=== PATIENT | female | born 1950 | race Two or more races ===

== ENCOUNTER → 2017-03-02 | Outpatient (CLI) | payer OTHER ==
--- NOTE | 2017-03-10 09:49 | MM ---
Reason for exam: screening (asymptomatic). Baseline mammogram. History: Patient is postmenopausal. Physical Findings: A clinical breast exam by your physician is recommended on an annual basis and results should be correlated with mammographic findings. MG 3D Screening Mammo W/Cad Bilateral CC and MLO view(s) were taken. Prior study comparison: January 24, 2016, mammogram, performed at [place]. December 26, 2014, mammogram, performed at [place]. The breast tissue is heterogeneously dense. This may lower the sensitivity of mammography. There is chronic nodularity bilaterally. There is no dominant lesion. No significant changes when compared with prior studies. ASSESSMENT: Benign, BI-RAD 2 RECOMMENDATION: Routine screening mammogram of both breasts in 1 year.
== END ==
LOC: RADMAMWWP 13:03
PROVIDERS: ATTEND Family Medicine
DX: Z12.31 Encounter for screening mammogram for malignant neoplasm of breast (principal)
CPT/HCPCS: 77063; G0202

== ENCOUNTER → 2018-04-08 | Outpatient (CLI) | payer MEDICARE ==
--- NOTE | 2018-04-09 09:45 | MM ---
Reason for exam: screening (asymptomatic). Last mammogram was performed 1 year and 1 month ago. History: Patient is postmenopausal. Physical Findings: A clinical breast exam by your physician is recommended on an annual basis and results should be correlated with mammographic findings. MG 3D Screening Mammo W/Cad Bilateral CC and MLO view(s) were taken. Prior study comparison: March 02, 2017, bilateral MG 3d screening mammo w/cad. January 24, 2016, mammogram, performed at [place]. The breast tissue is heterogeneously dense. This may lower the sensitivity of mammography. No significant changes when compared with prior studies. ASSESSMENT: Benign, BI-RAD 2 RECOMMENDATION: Routine screening mammogram of both breasts in 1 year.
== END ==
LOC: RADMAMWWP 13:34
PROVIDERS: ATTEND Family Medicine
DX: Z12.31 Encounter for screening mammogram for malignant neoplasm of breast (principal)
CPT/HCPCS: 77063; 77067

== ENCOUNTER 2019-04-05 20:33 | Emergency (ER) | payer MEDICARE ==
[2019-04-05] MEDS ORDERED: SODIUM CHLORIDE 0.9% 1,000 ML IV STA (20:51)
--- NOTE | 2019-04-05 20:57 | ED ---
Arrhythmia/Palpitations HPI - General Chief Complaint: Arrhythmia/Palpitations Stated Complaint: Fast heart rate, weakness Time Seen by Provider: 04/05/19 20:46 Source: patient Mode of arrival: wheelchair Limitations: no limitations - History of Present Illness Initial Comments: 68 year-old female patient presents to the emergency department today for ev aluation of racing heart. Patient states she had a colonoscopy performed yesterday has been having rapid heart rate since. Patient states that she feels generally weak and nauseated with this. She denies any vomiting. Denies any chest pain or shortness of breath. Patient denies any history of abnormal heart rhythms or tachycardia. She denies any use of stimulants. No caffeinated beverages. Denies any history of thyroid disorders. Patient denies any recent rash, fever, chills, abdominal pain, diarrhea, constipation, back pain, numbness, tingling, hematuria, dysuria, urinary urgency, urinary frequency, headache, visual changes, or any other complaints. - Related Data Home Medications Medication Instructions Recorded Confirmed Biotin 5 mg PO DAILY 04/05/19 04/05/19 Empagliflozin [Jardiance] 25 mg PO DAILY 04/05/19 04/05/19 Esomeprazole Magnesium [NexIUM] 40 mg PO DAILY 04/05/19 04/05/19 Eszopiclone [Lunesta] 3 mg PO HS 04/05/19 04/05/19 Insulin Degludec [Tresiba] 8 units SQ DAILY 04/05/19 04/05/19 Liraglutide [Victoza 2-Julio] 1.8 mg SQ DAILY 04/05/19 04/05/19 Lisinopril 20 mg PO DAILY 04/05/19 04/05/19 Naproxen Sodium [Aleve] 220 mg PO BID 04/05/19 04/05/19 Pravastatin Sodium [Pravachol] 20 mg PO DAILY 04/05/19 04/05/19 Ubidecarenone [Co Q-10] 100 mg PO DAILY 04/05/19 04/05/19 Vit C/E/Zn/Coppr/Lutein/Zeaxan 1 cap PO BID 04/05/19 04/05/19 [Preservision Areds 2 Softgel] metFORMIN HCL 1,000 mg PO BID 04/05/19 04/05/19 Allergies Allergy/AdvReac Type Severity Reaction Status Date / Time codeine AdvReac Nausea & Verified 04/05/19 21:05 Vomiting nickel AdvReac Rash/Hives Verified 04/05/19 21:05 thimerosal AdvReac Rash/Hives Verified 04/05/19 21:05 Review of Systems ROS Statement: Those systems with pertinent positive or pertinent negative responses have been documented in the HPI. ROS Other: All systems not noted in ROS Statement are negative. Past Medical History Past Medical History: Diabetes Mellitus, Hypertension History of Any Multi-Drug Resistant Organisms: None Reported Past Surgical History: Hysterectomy Additional Past Surgical History / Comment(s): laminectomy, bunionectomy, Past Psychological History: No Psychological Hx Reported Smoking Status: Never smoker Past Alcohol Use History: None Reported Past Drug Use History: None Reported General Exam Limitations: no limitations General appearance: alert, in no apparent distress, other (This is a well- developed, well-nourished adult female patient in no acute distress. Vital signs upon presentation are temperature 97.9F, pulse 153, respirations 19, blood pressure 129/70, pulse ox 100% on room air.) Eye exam: Present: normal appearance, PERRL, EOMI. Absent: scleral icterus, conjunctival injection, periorbital swelling ENT exam: Present: normal exam, normal oropharynx, mucous membranes moist Respiratory exam: Present: normal lung sounds bilaterally. Absent: respiratory distress, wheezes, rales, rhonchi, stridor Cardiovascular Exam: Present: normal rhythm, tachycardia, normal heart sounds. Absent: systolic murmur, diastolic murmur, rubs, gallop, clicks GI/Abdominal exam: Present: soft, normal bowel sounds. Absent: distended, tenderness, guarding, rebound, rigid Neurological exam: Present: alert, oriented X3, CN II-XII intact Psychiatric exam: Present: normal affect, normal mood Skin exam: Present: warm, dry, intact, normal color. Absent: rash Course Vital Signs 04/05/19 04/05/19 04/05/19 20:40 21:13 22:05 Temperature 97.9 F Pulse Rate 153 H 122 H 91 Respiratory 19 18 18 Rate Blood Pressure 129/70 125/62 117/56 O2 Sat by Pulse 100 98 100 Oximetry EKG Findings - EKG Comments: EKG Findings:: EKG obtained at 2058 shows sinus tachycardia with a ventricular rate of 134, OH interval 130, QRS duration 78, QT 302, QTc 450. No evidence of ST elevation or depression. Medical Decision Making - Medical Decision Making 68 year-old female patient presents to the emergency department today for evaluation of weakness and racing heart. Physical examination did reveal tachycardia with a normal rhythm and normal heart sounds. She is neurologically intact with no focal deficits. Labs reviewed and did reveal elevated BUN. Did reveal low TSH with a normal T4 level. I did discuss findings and results with the patient. After receiving IV fluids here in the emergency department she does report improvement of symptoms. Currently is now between 88 and 90 bpm I again exhibiting normal sinus rhythm. Patient does feel comfortable being discharged home at this time. Did discuss dehydration as a cause for her symptoms. This is secondary to receiving a bowel prep for colonoscopy yesterday. She is instructed to follow-up with her primary care physician for recheck as soon as possible. Return parameters were discussed in detail. She verbalizes understanding and agrees with this plan. - Lab Data Result diagrams: 04/05/19 21:00 04/05/19 21:00 Lab Results 04/05/19 04/05/19 04/05/19 Range/Units 21:00 21:00 21:00 WBC 11.3 H (3.8-10.6) k/uL RBC 4.89 (3.80-5.40) m/uL Hgb 13.8 (11.4-16.0) gm/dL Hct 44.1 (34.0-46.0) % MCV 90.3 (80.0-100.0) fL MCH 28.2 (25.0-35.0) pg MCHC 31.3 (31.0-37.0) g/dL RDW 14.3 (11.5-15.5) % Plt Count 497 H (150-450) k/uL Neutrophils % 72 % Lymphocytes % 17 % Monocytes % 8 % Eosinophils % 1 % Basophils % 0 % Neutrophils # 8.1 H (1.3-7.7) k/uL Lymphocytes # 1.9 (1.0-4.8) k/uL Monocytes # 0.9 (0-1.0) k/uL Eosinophils # 0.1 (0-0.7) k/uL Basophils # 0.1 (0-0.2) k/uL Hypochromasia Slight PT 9.3 (9.0-12.0) sec INR 0.8 (<1.2) APTT 20.5 L (22.0-30.0) sec D-Dimer 0.36 (<0.60) mg/L FEU Sodium 137 (137-145) mmol/L Potassium 5.0 (3.5-5.1) mmol/L Chloride 105 (98-107) mmol/L Carbon Dioxide 12 L (22-30) mmol/L Anion Gap 20 mmol/L BUN 28 H (7-17) mg/dL Creatinine 0.94 (0.52-1.04) mg/dL Est GFR (CKD-EPI)AfAm 73 (>60 ml/min/1.73 sqM) Est GFR (CKD-EPI)NonAf 64 (>60 ml/min/1.73 sqM) Glucose 266 H (74-99) mg/dL Calcium 11.3 H (8.4-10.2) mg/dL Magnesium 2.3 (1.6-2.3) mg/dL Total Bilirubin 0.5 (0.2-1.3) mg/dL AST 21 (14-36) U/L ALT 52 (9-52) U/L Alkaline Phosphatase 123 (38-126) U/L Troponin I (0.000-0.034) ng/mL Total Protein 7.3 (6.3-8.2) g/dL Albumin 4.8 (3.5-5.0) g/dL TSH 0.156 L (0.465-4.680) mIU/L Free T4 (0.78-2.19) ng/dL 04/05/19 04/05/19 Range/Units 21:00 21:00 WBC (3.8-10.6) k/uL RBC (3.80-5.40) m/uL Hgb (11.4-16.0) gm/dL Hct (34.0-46.0) % MCV (80.0-100.0) fL MCH (25.0-35.0) pg MCHC (31.0-37.0) g/dL RDW (11.5-15.5) % Plt Count (150-450) k/uL Neutrophils % % Lymphocytes % % Monocytes % % Eosinophils % % Basophils % % Neutrophils # (1.3-7.7) k/uL Lymphocytes # (1.0-4.8) k/uL Monocytes # (0-1.0) k/uL Eosinophils # (0-0.7) k/uL Basophils # (0-0.2) k/uL Hypochromasia PT (9.0-12.0) sec INR (<1.2) APTT (22.0-30.0) sec D-Dimer (<0.60) mg/L FEU Sodium (137-145) mmol/L Potassium (3.5-5.1) mmol/L Chloride (98-107) mmol/L Carbon Dioxide (22-30) mmol/L Anion Gap mmol/L BUN (7-17) mg/dL Creatinine (0.52-1.04) mg/dL Est GFR (CKD-EPI)AfAm (>60 ml/min/1.73 sqM) Est GFR (CKD-EPI)NonAf (>60 ml/min/1.73 sqM) Glucose (74-99) mg/dL Calcium (8.4-10.2) mg/dL Magnesium (1.6-2.3) mg/dL Total Bilirubin (0.2-1.3) mg/dL AST (14-36) U/L ALT (9-52) U/L Alkaline Phosphatase (38-126) U/L Troponin I <0.012 (0.000-0.034) ng/mL Total Protein (6.3-8.2) g/dL Albumin (3.5-5.0) g/dL TSH (0.465-4.680) mIU/L Free T4 1.74 (0.78-2.19) ng/dL - Radiology Data Radiology results: report reviewed, image reviewed Two-view x-ray of the chest is obtained. Report was reviewed in its entirety. Impression by Dr. Braden shows normal chest with a normal heart. Disposition Clinical Impression: Tachycardia, Dehydration Disposition: HOME SELF-CARE Condition: Good Instructions (If sedation given, give patient instructions): Dehydration (ED), Tachycardia (ED) Additional Instructions: Increase fluids. Follow-up through primary care physician for recheck as soon as possible. Return to the emergency department immediately for any new, worsening, or concerning symptoms. Is patient prescribed a controlled substance at d/c from ED?: No Referrals: Christine Trinidad DO [Primary Care Provider] - 1-2 days Time of Disposition: 22:49
[2019-04-05 21:10] LABS: Basophils # (A) 0.1 k/uL (0-0.2); Basophils % (A) 0 %; Eosinophils # (A) 0.1 k/uL (0-0.7); Eosinophils % (A) 1 %; HCT 44.1 % (34.0-46.0); HGB 13.8 gm/dL (11.4-16.0); Hypochromasia Slight; Lymphocytes # (A) 1.9 k/uL (1.0-4.8); Lymphocytes % (A) 17 %; MCH 28.2 pg (25.0-35.0); MCHC 31.3 g/dL (31.0-37.0); MCV 90.3 fL (80.0-100.0); Mean Platelet Volume 7.1; Monocytes # (A) 0.9 k/uL (0-1.0); Monocytes % (A) 8 %; Neutrophils # (A) 8.1 k/uL (1.3-7.7); Neutrophils % (A) 72 %; Platelet Count 497 k/uL (150-450); RBC 4.89 m/uL (3.80-5.40); RDW 14.3 % (11.5-15.5); WBC 11.3 k/uL (3.8-10.6)
[2019-04-05 21:14] VITALS: RESP 18
[2019-04-05 21:19] LABS: Albumin 4.8 g/dL (3.5-5.0); Calcium 11.3 mg/dL (8.4-10.2); Magnesium 2.3 mg/dL (1.6-2.3); Total Bilirubin 0.5 mg/dL (0.2-1.3); Total Protein 7.3 g/dL (6.3-8.2)
--- NOTE | 2019-04-05 21:20 | XR ---
EXAMINATION TYPE: XR chest 2V DATE OF EXAM: 04/05/2019 COMPARISON: NONE HISTORY: Weakness TECHNIQUE: Frontal and lateral views of the chest are obtained. FINDINGS: Heart and mediastinum are normal. Lungs are clear. Diaphragm is normal. Bony thorax is int act. There are chest leads. IMPRESSION: Normal chest. Normal heart.
[2019-04-05 21:32] LABS: D-Dimer 0.36 mg/L FEU (<0.60); INR 0.8 (<1.2); Prothrombin Time 9.3 sec (9.0-12.0)
[2019-04-05 21:42] LABS: Partial Thromboplastin Time 20.5 sec (22.0-30.0)
[2019-04-05 22:56] VITALS: BP 108/54; PULSE 82; TEMP 97.5
== END 2019-04-05 22:55 | disposition home or self-care (01) ==
LOC: EC 20:33
DX: E86.0 Dehydration (principal); R00.0 Tachycardia, unspecified; R79.89 Other specified abnormal findings of blood chemistry; R53.1 Weakness; R11.0 Nausea; E11.9 Type 2 diabetes mellitus without complications; I10 Essential (primary) hypertension; Z79.1 Long term (current) use of non-steroidal anti-inflammatories (NSAID); Z79.4 Long term (current) use of insulin; Z79.899 Other long term (current) drug therapy; Z88.5 Allergy status to narcotic agent; Z88.8 Allergy status to other drugs, medicaments and biological substances; Z91.048 Other nonmedicinal substance allergy status
CPT/HCPCS: 36415; 71046; 80053; 83735; 84439; 84443; 84484; 85025; 85379; 85610; 85730; 93005; 96360; 99285

== ENCOUNTER → 2019-04-27 | Outpatient (CLI) | payer MEDICARE ==
--- NOTE | 2019-04-27 10:24 | BD ---
EXAMINATION TYPE: Axial Bone Density DATE OF EXAM: 04/27/2019 COMPARISON: NONE CLINICAL HISTORY: Postmenopausal female. Osteoporosis screening. Height: 5'1 Weight: 111 FRAX RISK QUESTIONS: Family History (Parent hip fracture): y Secondary Osteoporosis: RISK FACTORS HISTORY OF: Surgery to Spine/): cervical When: 48 Family History of Osteoporosis: y Postmenopausal woman: y MEDICATIONS: Additional Medications: blood pressure, type 2 diabetes Additional History: EXAM MEASUREMENTS: Bone mineral densitometry was performed using the [employer] System. Bone mineral density as measured about the Lumbar spine is: ----- L1-L4(G/cm2): 1.181 T Score Values are as follows: ----- L2: -1.9 ----- L3: 0.9 ----- L4: 2.5 ----- L1-L4: 0.0 Bone mineral density about the R hip (g/cm2): 0.941 Bone mineral density about the L hip (g/cm2): 0.923 T Score values are as follows: -----R Neck: -0.7 -----L Neck: -0.8 -----R Total: -0.6 -----L Total: -0.6 IMPRESSION: Normal (Values between +1 and -1 indicate normal bone mass). Consider repeating this study in 5 year s or sooner if there is some new clinical indication. NOTE: T-SCORE=SD OF THE YOUNG ADULT MEAN.
--- NOTE | 2019-04-28 11:44 | MM ---
Reason for exam: screening (asymptomatic). Last mammogram was performed 1 year and 1 month ago. History: Patient is postmenopausal. Physical Findings: A clinical breast exam by your physician is recommended on an annual basis and results should be correlated with mammographic findings. MG 3D Screening Mammo W/Cad Bilateral CC and MLO view(s) were taken. Prior study comparison: April 08, 2018, bilateral MG 3d screening mammo w/cad. March 02, 2017, bilateral MG 3d screening mammo w/cad. The breast tissue is heterogeneously dense. This may lower the sensitivity of mammography. Benign appearing bilateral calcifications. No suspicious abnormality. No significant changes when compared with prior studies. ASSESSMENT: Benign, BI-RAD 2 RECOMMENDATION: Routine screening mammogram of both breasts in 1 year.
== END | disposition home or self-care (01) ==
LOC: RADMAMWWP 07:54
PROVIDERS: ATTEND Family Medicine
DX: Z12.31 Encounter for screening mammogram for malignant neoplasm of breast (principal); Z13.820 Encounter for screening for osteoporosis
CPT/HCPCS: 77063; 77067; 77080

== ENCOUNTER 2019-12-12 12:14 | Inpatient (IN) | payer MEDICARE ==
[2019-12-12 13:00] LABS: Basophils # (A) 0.1 k/uL (0-0.2); Basophils % (A) 1 %; Eosinophils # (A) 0.3 k/uL (0-0.7); Eosinophils % (A) 3 %; HCT 41.3 % (34.0-46.0); HGB 12.3 gm/dL (11.4-16.0); Hypochromasia Moderate; Lymphocytes # (A) 1.3 k/uL (1.0-4.8); Lymphocytes % (A) 12 %; MCH 24.1 pg (25.0-35.0); MCHC 29.8 g/dL (31.0-37.0); MCV 80.9 fL (80.0-100.0); Mean Platelet Volume 6.8; Monocytes # (A) 0.6 k/uL (0-1.0); Monocytes % (A) 5 %; Neutrophils # (A) 8.6 k/uL (1.3-7.7); Neutrophils % (A) 78 %; Platelet Count 596 k/uL (150-450); RDW 15.6 % (11.5-15.5); WBC 11.1 k/uL (3.8-10.6)
[2019-12-12 13:09] LABS: ALT 27 U/L (4-34); AST 30 U/L (14-36); African American GFR (CKD) >90 (>60 ml/min/1.73 sqM); Albumin 4.6 g/dL (3.5-5.0); Alkaline Phosphatase 129 U/L (38-126); Anion Gap 11 mmol/L; Blood Urea Nitrogen 30 mg/dL (7-17); Calcium 10.3 mg/dL (8.4-10.2); Carbon Dioxide 29 mmol/L (22-30); Chloride 100 mmol/L (98-107); Glucose 177 mg/dL (74-99); Non-African American GFR(CKD) >90 (>60 ml/min/1.73 sqM); Potassium 4.5 mmol/L (3.5-5.1); Sodium 140 mmol/L (137-145); Total Bilirubin 0.4 mg/dL (0.2-1.3); Total Protein 7.4 g/dL (6.3-8.2)
[2019-12-12] MEDS ORDERED: niCARdipine 20 MG in SODIUM CHLORIDE 0.9% 192 ML IV ONE (13:11)
--- NOTE | 2019-12-12 13:13 | CT ---
EXAMINATION TYPE: CT brain wo con for TPA DATE OF EXAM: 12/12/2019 HISTORY: altered mental status, DIAL CT DLP: 1089 mGycm. Automated Exposure Control for Dose Reduction was Utilized. TECHNIQUE: CT scan of the head is performed without contrast. COMPARISON: None. FINDINGS: There is no acute intracranial hemorrhage or midline shift identified. There is diffuse v entricular and sulcal prominence consistent with diffuse age-related cerebral atrophy. There is low- attenuation in the periventricular white matter consistent with chronic small vessel ischemic change. Empty sella morphology noted The globes are intact and the visualized sinuses are clear. IMPRESSION: No acute intracranial hemorrhage or midline shift. There is mild to borderline moderate diffuse cerebral atrophy and minimal chronic small vessel ischemic change noted.
[2019-12-12] MEDS ORDERED: ALTEPLASE BOLUS 5 MG in EMPTY SYRINGE 1 SYR IV STA (13:16)
[2019-12-12] MEDS ORDERED: ALTEPLASE 46 MG in EMPTY BAG 1 BAG IV STA (13:16)
[2019-12-12] MEDS ORDERED: Alteplase PER PHARMACY Stroke 1 EACH MISC MISCELLANE PRN (13:19)
--- NOTE | 2019-12-12 13:31 | ED ---
Altered Mental Status HPI - General Chief Complaint: Altered Mental Status Stated Complaint: Altered mental status/headache Time Seen by Provider: 12/12/19 12:35 Source: patient Mode of arrival: ambulatory Limitations: no limitations - History of Present Illness Initial Comments: The patient is a 69-year-old female with past medical history of diabetes, hypertension and hyperlipidemia who presents to emergency room with reported speech difficulties. is at bedside and helps provide the history. He states that the patient had a drive to the doctor's this morning in order to have laboratory studies conducted. She drove herself and did just fine. She returned home and around 10 AM she began having difficulties with her speech. She also reported an associated headache. States that the headache did bother her throughout the night however went away and then reoccurred. She admits to visual changes. States that she had difficulty reading the text messages on her phone. Her speech became very broken and she could not find her words therefore brought her into the emergency room for evaluation. There is no unilateral numbness or weakness. The patient denies any neck pain or stiffness. No fevers or chills. Denies recent head trauma. She denies any vertiginous symptoms. No photophobia. Denies recent head trauma. She is not on anticoagulation. She did have recent surgery 2 weeks ago for a bladder suspension. No recent brain or spinal surgery. Denies a history of life- threatening bleed. There are no alleviating, precipitating or modifying factors - Related Data Home Medications Medication Instructions Recorded Confirmed Biotin 5 mg PO DAILY 04/05/19 12/12/19 Esomeprazole Magnesium [NexIUM] 40 mg PO DAILY 04/05/19 12/12/19 Insulin Degludec [Tresiba] 6 units SQ 04/05/19 12/12/19 Lisinopril 20 mg PO DAILY 04/05/19 12/12/19 Naproxen Sodium [Aleve] 220 mg PO BID 04/05/19 12/12/19 Pravastatin Sodium [Pravachol] 20 mg PO HS 04/05/19 12/12/19 Ubidecarenone [Co Q-10] 100 mg PO DAILY 04/05/19 12/12/19 Vit C/E/Zn/Coppr/Lutein/Zeaxan 1 cap PO BID 04/05/19 12/12/19 [Preservision Areds 2 Softgel] metFORMIN HCL 1,000 mg PO BID 04/05/19 12/12/19 Eszopiclone [Lunesta] 2 mg PO HS 12/12/19 12/12/19 Furosemide [Lasix] 20 mg PO DAILY 12/12/19 12/12/19 Insulin Aspart [NovoLOG Flexpen] See Protocol SQ AC-TID 12/12/19 12/12/19 Oxybutynin Chloride [Ditropan] 5 mg PO TID PRN 12/12/19 12/12/19 Potassium Chloride 10 meq PO DAILY 12/12/19 12/12/19 Allergies Allergy/AdvReac Type Severity Reaction Status Date / Time codeine AdvReac Nausea & Verified 12/12/19 15:52 Vomiting nickel AdvReac Rash/Hives Verified 12/12/19 15:52 thimerosal AdvReac Rash/Hives Verified 12/12/19 15:52 Review of Systems ROS Statement: Those systems with pertinent positive or pertinent negative responses have been documented in the HPI. ROS Other: All systems not noted in ROS Statement are negative. Past Medical History Past Medical History: Diabetes Mellitus, Hyperlipidemia, Hypertension History of Any Multi-Drug Resistant Organisms: None Reported Past Surgical History: Hysterectomy Additional Past Surgical History / Comment(s): laminectomy, bunionectomy, Past Anesthesia/Blood Transfusion Reactions: No Reported Reaction Past Psychological History: No Psychological Hx Reported Smoking Status: Never smoker Past Alcohol Use History: None Reported Past Drug Use History: None Reported - Past Family History Father Family Medical History: Diabetes Mellitus Mother Family Medical History: Hypertension, Rheumatoid Arthritis (RA) General Exam Limitations: altered mental status General appearance: alert, anxious Head exam: Present: atraumatic, normocephalic, normal inspection Eye exam: Present: normal appearance, PERRL. Absent: scleral icterus, conjunctival injection, periorbital swelling ENT exam: Present: normal exam, mucous membranes moist Neck exam: Present: normal inspection. Absent: tenderness, meningismus, lymphadenopathy Respiratory exam: Present: normal lung sounds bilaterally. Absent: respiratory distress, wheezes, rales, rhonchi, stridor Cardiovascular Exam: Present: normal rhythm, tachycardia, normal heart sounds. Absent: systolic murmur, diastolic murmur, rubs, gallop, clicks GI/Abdominal exam: Present: soft, normal bowel sounds. Absent: distended, tend erness, guarding, rebound, rigid Extremities exam: Present: normal inspection, full ROM, normal capillary refill. Absent: tenderness, pedal edema, joint swelling, calf tenderness Back exam: Present: normal inspection Neurological exam: Present: alert, other Psychiatric exam: Present: normal affect, normal mood Skin exam: Present: warm, dry, intact, normal color, cyanosis (moderate expressive aphasia. The patient also has difficulties with right lateral gaze and peripheral vision testing on the right. Mild dysarthria. 5/5 strength in bilaterally upper and lower extremities. No facial droop. ). Absent: rash Course Vital Signs 12/12/19 12/12/19 12/12/19 12:29 13:15 13:27 Temperature 98.7 F Pulse Rate 140 H Respiratory 22 Rate Blood Pressure 218/100 201/100 201/97 O2 Sat by Pulse 98 Oximetry 12/12/19 12/12/19 12/12/19 13:31 13:34 13:40 Temperature Pulse Rate 144 H 158 H 160 H Respiratory 16 16 185 H Rate Blood Pressure 185/91 164/78 176/87 O2 Sat by Pulse 98 99 Oximetry 12/12/19 12/12/19 12/12/19 13:44 13:45 14:00 Temperature Pulse Rate 160 H 158 H 154 H Respiratory 16 21 Rate Blood Pressure 185/84 167/78 166/71 O2 Sat by Pulse 95 96 98 Oximetry 12/12/19 12/12/19 12/12/19 14:15 14:30 14:45 Temperature 98.1 F Pulse Rate 149 H 148 H 151 H Respiratory 19 19 20 Rate Blood Pressure 155/68 152/67 153/91 O2 Sat by Pulse 97 97 97 Oximetry 12/12/19 12/12/19 12/12/19 15:00 15:15 15:30 Temperature 98.4 F Pulse Rate 147 H 144 H 141 H Respiratory 19 18 19 Rate Blood Pressure 151/72 148/74 154/82 O2 Sat by Pulse 95 94 L 96 Oximetry Medical Decision Making - Medical Decision Making Upon arrival the patient was promptly placed into room 3. A thorough history and physical exam was performed. The patient does have difficulties with visual acuity on the right. She has lost her peripheral vision on that side. No facial droop or upper or lower extremity weakness noted. Denies vertiginous symptoms. She is reporting a headache. She is noted to be extremely tachycardic and hypertensive. As the onset of her symptoms was at 10:00 I did activate a code stroke. This is her last known well her NIH is 9. Discussed the case with Dr. Peterson who is requesting CT angios in the patient. We did conduct laboratory studies. CT of the brain as well as CT angiography was evaluated by Dr. Crespo which demonstrates no significant stenosis in the common or internal carotid arteries. No obvious stenosis or aneurysmal change in the level of the [employer] [place]. No hemorrhagic bleeding. Chest x-ray demonstrates cardiomegaly. The patient presented to the hospital after having symptoms for [address] Peterson does not see a clot on CT however does recommend TPA administration as we are now at the 3.5 hour time window. The patient is extremely hypertensive and therefore she is started on Cardene drip at 10 mg per hour. I also provided the patient with 50 g of fentanyl for pain control as she is reporting headache. Patient does have great improvement in her blood pressures to 176/87 however this did cause a delay in TPA administration. Because of this we did provide the TPA this time. The risks an d benefits have been discussed previous by myself as well as by Dr. Peterson. The patient does agree to the risks. She does remain on the Cardizem drip. She continued to have a headache with tachycardia and therefore I did provide the patient with a dose of morphine. I discussed the case with Dr. Mcintyre, Dr. Neves and Dr. Dowd, all of which agreed to accept admission for the patient. The patient was then admitted to ICU in hemodynamically stable condition - Lab Data Result diagrams: 12/14/19 04:32 12/14/19 04:29 Lab Results 12/12/19 12/12/19 12/12/19 Range/Units 12:43 12:43 12:43 WBC 11.1 H (3.8-10.6) k/uL RBC 5.10 (3.80-5.40) m/uL Hgb 12.3 (11.4-16.0) gm/dL Hct 41.3 (34.0-46.0) % MCV 80.9 (80.0-100.0) fL MCH 24.1 L (25.0-35.0) pg MCHC 29.8 L (31.0-37.0) g/dL RDW 15.6 H (11.5-15.5) % Plt Count 596 H (150-450) k/uL Neutrophils % 78 % Lymphocytes % 12 % Monocytes % 5 % Eosinophils % 3 % Basophils % 1 % Neutrophils # 8.6 H (1.3-7.7) k/uL Lymphocytes # 1.3 (1.0-4.8) k/uL Monocytes # 0.6 (0-1.0) k/uL Eosinophils # 0.3 (0-0.7) k/uL Basophils # 0.1 (0-0.2) k/uL Hypochromasia Moderate PT 9.7 (9.0-12.0) sec INR 0.9 (<1.2) APTT 21.6 L (22.0-30.0) sec Sodium 140 (137-145) mmol/L Potassium 4.5 (3.5-5.1) mmol/L Chloride 100 (98-107) mmol/L Carbon Dioxide 29 (22-30) mmol/L Anion Gap 11 mmol/L BUN 30 H (7-17) mg/dL Creatinine 0.61 (0.52-1.04) mg/dL Est GFR (CKD-EPI)AfAm >90 (>60 ml/min/1.73 sqM) Est GFR (CKD-EPI)NonAf >90 (>60 ml/min/1.73 sqM) Glucose 177 H (74-99) mg/dL Estimated Ave Glu mg/dL Hemoglobin A1c (4.0-6.0) % Lactic Ac Sepsis Rflx Plasma Lactic Acid Rd (0.7-2.0) mmol/L Calcium 10.3 H (8.4-10.2) mg/dL Total Bilirubin 0.4 (0.2-1.3) mg/dL AST 30 (14-36) U/L ALT 27 (4-34) U/L Alkaline Phosphatase 129 H (38-126) U/L Troponin I (0.000-0.034) ng/mL Total Protein 7.4 (6.3-8.2) g/dL Albumin 4.6 (3.5-5.0) g/dL Urine Color Urine Appearance (Clear) Urine pH (5.0-8.0) Ur Specific [place] (1.001-1.035) Urine Protein (Negative) Urine Glucose (UA) (Negative) Urine Ketones (Negative) Urine Blood (Negative) Urine Nitrite (Negative) Urine Bilirubin (Negative) Urine Urobilinogen (<2.0) mg/dL Ur Leukocyte Esterase (Negative) Acetone, Qual Negative (Negative) 12/12/19 12/12/19 12/12/19 Range/Units 12:43 12:43 12:43 WBC (3.8-10.6) k/uL RBC (3.80-5.40) m/uL Hgb (11.4-16.0) gm/dL Hct (34.0-46.0) % MCV (80.0-100.0) fL MCH (25.0-35.0) pg MCHC (31.0-37.0) g/dL RDW (11.5-15.5) % Plt Count (150-450) k/uL Neutrophils % % Lymphocytes % % Monocytes % % Eosinophils % % Basophils % % Neutrophils # (1.3-7.7) k/uL Lymphocytes # (1.0-4.8) k/uL Monocytes # (0-1.0) k/uL Eosinophils # (0-0.7) k/uL Basophils # (0-0.2) k/uL Hypochromasia PT (9.0-12.0) sec INR (<1.2) APTT (22.0-30.0) sec Sodium (137-145) mmol/L Potassium (3.5-5.1) mmol/L Chloride (98-107) mmol/L Carbon Dioxide (22-30) mmol/L Anion Gap mmol/L BUN (7-17) mg/dL Creatinine (0.52-1.04) mg/dL Est GFR (CKD-EPI)AfAm (>60 ml/min/1.73 sqM) Est GFR (CKD-EPI)NonAf (>60 ml/min/1.73 sqM) Glucose (74-99) mg/dL Estimated Ave Glu mg/dL 174 Hemoglobin A1c 7.7 H (4.0-6.0) % Lactic Ac Sepsis Rflx Plasma Lactic Acid Rd 4.1 H* (0.7-2.0) mmol/L Calcium (8.4-10.2) mg/dL Total Bilirubin (0.2-1.3) mg/dL AST (14-36) U/L ALT (4-34) U/L Alkaline Phosphatase (38-126) U/L Troponin I <0.012 (0.000-0.034) ng/mL Total Protein (6.3-8.2) g/dL Albumin (3.5-5.0) g/dL Urine Color Urine Appearance (Clear) Urine pH (5.0-8.0) Ur Specific [place] (1.001-1.035) Urine Protein (Negative) Urine Glucose (UA) (Negative) Urine Ketones (Negative) Urine Blood (Negative) Urine Nitrite (Negative) Urine Bilirubin (Negative) Urine Urobilinogen (<2.0) mg/dL Ur Leukocyte Esterase (Negative) Acetone, Qual (Negative) 12/12/19 12/12/19 Range/Units 13:14 13:45 WBC (3.8-10.6) k/uL RBC (3.80-5.40) m/uL Hgb (11.4-16.0) gm/dL Hct (34.0-46.0) % MCV (80.0-100.0) fL MCH (25.0-35.0) pg MCHC (31.0-37.0) g/dL RDW (11.5-15.5) % Plt Count (150-450) k/uL Neutrophils % % Lymphocytes % % Monocytes % % Eosinophils % % Basophils % % Neutrophils # (1.3-7.7) k/uL Lymphocytes # (1.0-4.8) k/uL Monocytes # (0-1.0) k/uL Eosinophils # (0-0.7) k/uL Basophils # (0-0.2) k/uL Hypochromasia PT (9.0-12.0) sec INR (<1.2) APTT (22.0-30.0) sec Sodium (137-145) mmol/L Potassium (3.5-5.1) mmol/L Chloride (98-107) mmol/L Carbon Dioxide (22-30) mmol/L Anion Gap mmol/L BUN (7-17) mg/dL Creatinine (0.52-1.04) mg/dL Est GFR (CKD-EPI)AfAm (>60 ml/min/1.73 sqM) Est GFR (CKD-EPI)NonAf (>60 ml/min/1.73 sqM) Glucose (74-99) mg/dL Estimated Ave Glu mg/dL Hemoglobin A1c (4.0-6.0) % Lactic Ac Sepsis Rflx Y Plasma Lactic Acid Rd (0.7-2.0) mmol/L Calcium (8.4-10.2) mg/dL Total Bilirubin (0.2-1.3) mg/dL AST (14-36) U/L ALT (4-34) U/L Alkaline Phosphatase (38-126) U/L Troponin I (0.000-0.034) ng/mL Total Protein (6.3-8.2) g/dL Albumin (3.5-5.0) g/dL Urine Color Light Yellow Urine Appearance Clear (Clear) Urine pH 6.5 (5.0-8.0) Ur Specific [place] 1.028 (1.001-1.035) Urine Protein Negative (Negative) Urine Glucose (UA) Negative (Negative) Urine Ketones Trace H (Negative) Urine Blood Negative (Negative) Urine Nitrite Negative (Negative) Urine Bilirubin Negative (Negative) Urine Urobilinogen <2.0 (<2.0) mg/dL Ur Leukocyte Esterase Negative (Negative) Acetone, Qual (Negative) - EKG Data EKG Comments: EKG demonstrates sinus tachycardia with a ventricular rate of 143. HI interval 122. QRS 86. QTC 425. No acute ST segment patient depressions concerning for ischemic changes Critical Care Time Critical Care Time: Yes Total Critical Care Time: 40 (minutes) Critical Care Time: Critical care time of 40 minutes for consultation with Dr. Peterson on 3 occassion and multiple NIH assessments before and after TPA adminisation. The patient also required immediate blood pressure control and admission to the ICU. In addition to the neurointensivist, I discussed the case with Dr. Dowd, Dr. Neves and Dr. Godinez. Disposition Clinical Impression: Aphasia, CVA (cerebral vascular accident), Tachycardia, Lactic acidosis Disposition: ADMITTED IP TO THIS [facility] Condition: Serious Is patient prescribed a controlled substance at d/c from ED?: No Decision to Admit Reason: Admit from EC Decision Date: 12/12/19 Decision Time: 14:36
[2019-12-12] MEDS ORDERED: fentaNYL (PF) 50 MCG/ML 2 ML AMP IVP STA (13:33)
--- NOTE | 2019-12-12 13:37 | CT ---
EXAMINATION TYPE: CT angio head neck DATE OF EXAM: 12/12/2019 HISTORY: altered mental status, DIAL COMPARISON: NONE CT DLP: 362.1 mGycm. Automated Exposure Control for Dose Reduction was Utilized. TECHNIQUE: CTA scan of the head and neck are performed with IV Contrast, patient injected with 65 mL of Isovue 370, axial images are obtained, coronal and sagittal reformatted images are reviewed. Thre e-D reconstructed images are created on an independent workstation and reviewed. FINDINGS: Carotid/Vascular Structures: Normal 3 vessel origin from aortic arch. Right common carotid artery luly ws normal origin from right brachiocephalic artery. No significant focal plaque or stenosis in common or internal carotid arteries bilaterally including at level of carotid bulbs. Patent external caroti d arteries without significant plaque or stenosis. Dominant right vertebral artery. Vertebral arteries are patent to basilar junction. Patent bilateral posterior to indicating arteries. No significant focal stenosis or aneurysmal changes seen bilaterall y. Images in the anterior circulation show absent or hypoplastic left A1 segment with filling of A2 s egment due to patent anterior communicating artery. Exam suboptimal as 1 mm thin cut images are not s ent to PACS station for interpretation. Other: Coronary artery calcification LAD distribution axial image 3 noted. Some ossific fusion of the C6 and C7 vertebra. Moderate disc space narrowing and mild anterior spurring C5-C6 level. Slight gra de 1 anterolisthesis C3 on C4 and C4 on C5. Slight dextroconvex scoliotic curvature centered mid thor acic spine. IMPRESSION: 1. No significant stenosis in the common or internal carotid arteries bilaterally. 2. No obvious stenosis or aneurysmal change at level of [place].
[2019-12-12 13:40] LABS: INR 0.9 (<1.2); Prothrombin Time 9.7 sec (9.0-12.0)
[2019-12-12 13:43] LABS: Partial Thromboplastin Time 21.6 sec (22.0-30.0)
[2019-12-12 14:00] LABS: Appearance,Urine Clear (Clear); Bilirubin,Urine Negative (Negative); Blood,Urine Negative (Negative); Color,Urine Light Yellow; Glucose,Urine (UA) Negative (Negative); Ketones,Urine Trace (Negative); Leukocyte Esterase,Urine Negative (Negative); Nitrite,Urine Negative (Negative); PH, Urine 6.5 (5.0-8.0); Protein,Urine Negative (Negative); Specific Gravity,Urine 1.028 (1.001-1.035); Urobilinogen,Urine <2.0 mg/dL (<2.0)
[2019-12-12] MEDS ORDERED: SODIUM CHLORIDE 0.9% 50 ML MINI-BAG IV ONE (14:19)
[2019-12-12] MEDS ORDERED: MORPHINE SULFATE 4 MG/ML SYRINGE IVP STA (15:02)
--- NOTE | 2019-12-12 15:13 | XR ---
EXAMINATION TYPE: XR chest 1V portable DATE OF EXAM: 12/12/2019 COMPARISON: Prior chest x-ray 04/05/2019 HISTORY: Altered mental status, headache TECHNIQUE: Single frontal view of the chest is obtained. FINDINGS: There is no focal air space opacity, pleural effusion, or pneumothorax seen. The cardiac silhouette size is enlarged, rotation may accentuate the appearance. The osseous structures are int act. There are overlying cardiac leads. IMPRESSION: Suspect cardiomegaly.
[2019-12-12] MEDS ORDERED: METOPROLOL TARTRATE 5 MG/5 ML VIAL IVP STA (15:58)
[2019-12-12 16:04] LABS: Glucose,Whole Blood 247 mg/dL (75-99)
--- NOTE | 2019-12-12 16:29 | P.CNNES ---
History of Present Illness Consult date: 12/12/19 Requesting physician: Rupal Leyva Reason for Consult: Acute CVA History of Present Illness: Patient is a 69-year-old right-handed female, who has history of diabetes, hypertension, currently not on any antiplatelet medications, states that yesterday she was feeling fine. She went to sleep. At 4 AM she woke up as us ual to go to the bathroom, and felt a headache. After going to the restroom, she went to the living room, and put a cold cloth on her head and try to sleep. Patient then woke up, and went to get the blood draw for her diabetes that was requested previously. After she came back, she laid down because the headache that has got very worse. She slept for a while. Around the same time she notices she could not speak, Or talk at around 10 AM. EMS was called and patient arrived to the ER at 12:14 PM. Patient's blood pressure was 218/100, pulse rate 140, temperature 98.7. Oxygen saturation 98%. Patient had computed tomography scan of head, which revealed no acute intracranial process. There is mild to borderline moderate diffuse cerebral atrophy and minimal chronic small vessel ischemic change noted. CTA of head and neck showed no significant stenosis in the common or internal carotid arteries bilaterally. No obvious stenosis or aneurysmal change at the level of [place]. Patient underwent EKG showed sinus tachycardia with possible left atrial enlargement. Nonspecific ST abnormality. Chest x-ray showed cardiomegaly. Patient had to be started on Cardene drip to control her blood pressure. Stroke neurologist Dr. Peterson was contacted by ED staff and patient was considered a candidate for TPA. Patient received a bolus dose of TPA at 1:17 PM. Patient has tolerated TPA well and her symptoms have improved as per examination below. Patient still had a headache 8/10, for which she received morphine and now the headache is 5/10. Still feeling nauseous and sometimes vomits. Patient denies any previous history of migraines in herself, or any family history of migraines. She never had headaches like this before. Patient has diabetes for 10 years, hypertension but denies any tobacco use, alcohol. No family history of CVA, except one of her grandmother had CVA at age 96. Patient was not on any antiplatelet medication prior to this stroke. Her most recent blood pressure is 154/82, pulse rate 141 respiration 19. Patient's last hemoglobin A1c 8.9 on 10/13/2018. Patient's total cholesterol is 163, LDL 70, HDL 62 and triglycerides 155 on 04/07/2019. TFTs normal. Her previous rheumatoid factor, REY, compliments normal. Review of Systems Positive for headache, nausea vomiting. Denies chest pain, shortness of breath, wheezing cough, diplopia. Denies any loss of vision denies any numbness tingling focal weakness. Past Medical History Past Medical History: Diabetes Mellitus, GERD/Reflux, Hyperlipidemia, Hypertension Additional Past Medical History / Comment(s): NIDDM type II History of Any Multi-Drug Resistant Organisms: None Reported Past Surgical History: Bladder Surgery, Hysterectomy, Orthopedic Surgery Additional Past Surgical History / Comment(s): Bladder prolapse surgery at [facility] approximately 2 weeks ago, cervical surgery, bilateral bunionectomy, colonoscopy, bilateral cataract removals/lens implants Past Anesthesia/Blood Transfusion Reactions: No Reported Reaction Smoking Status: Never smoker - Past Family History Father Family Medical History: Diabetes Mellitus Mother Family Medical History: Hypertension, Rheumatoid Arthritis (RA) Medications and Allergies Home Medications Medication Instructions Recorded Confirmed Type Biotin 5 mg PO DAILY 04/05/19 07/27/19 History Esomeprazole Magnesium [NexIUM] 40 mg PO DAILY 04/05/19 07/27/19 History Insulin Degludec [Tresiba] 8 units SQ DAILY 04/05/19 07/27/19 History Lisinopril 20 mg PO DAILY 04/05/19 07/27/19 History Naproxen Sodium [Aleve] 220 mg PO BID 04/05/19 07/27/19 History Pravastatin Sodium [Pravachol] 20 mg PO DAILY 04/05/19 07/27/19 History Ubidecarenone [Co Q-10] 100 mg PO DAILY 04/05/19 07/27/19 History Vit C/E/Zn/Coppr/Lutein/Zeaxan 1 cap PO BID 04/05/19 07/27/19 History [Preservision Areds 2 Softgel] metFORMIN HCL 1,000 mg PO BID 04/05/19 07/27/19 History Eszopiclone [Lunesta] 2 mg PO HS 12/12/19 12/12/19 History Furosemide [Lasix] 20 mg PO DAILY 12/12/19 12/12/19 History Insulin Aspart [NovoLOG Flexpen] See Protocol SQ AC-TID 12/12/19 12/12/19 History Oxybutynin Chloride [Ditropan] 5 mg PO TID PRN 12/12/19 12/12/19 History Potassium Chloride 10 meq PO DAILY 12/12/19 12/12/19 History Allergies Allergy/AdvReac Type Severity Reaction Status Date / Time codeine AdvReac Nausea & Verified 12/12/19 15:52 Vomiting nickel AdvReac Rash/Hives Verified 12/12/19 15:52 thimerosal AdvReac Rash/Hives Verified 12/12/19 15:52 Physical Examination - Vital Signs Vital Signs: Vital Signs Temp Pulse Resp BP Pulse Ox 12/12/19 15:30 141 H 19 154/82 96 12/12/19 15:15 144 H 18 148/74 94 L 12/12/19 15:00 98.4 F 147 H 19 151/72 95 12/12/19 14:45 151 H 20 153/91 97 12/12/19 14:30 148 H 19 152/67 97 12/12/19 14:15 98.1 F 149 H 19 155/68 97 12/12/19 14:00 154 H 21 166/71 98 12/12/19 13:45 158 H 16 167/78 96 12/12/19 13:44 160 H 185/84 95 12/12/19 13:40 160 H 185 H 176/87 12/12/19 13:34 158 H 16 164/78 99 12/12/19 13:31 144 H 16 185/91 98 12/12/19 13:27 201/97 12/12/19 13:15 201/100 12/12/19 12:29 98.7 F 140 H 22 218/100 98 Intake and Output 12/12/19 12/12/19 12/12/19 06:59 14:59 22:59 Intake Total 163.750 Balance 163.750 Intake: Intake, IV Titration 163.750 Amount niCARdipine 20 mg In 163.750 Sodium Chloride 0.9% 192 ml @ 10 MG/HR 100 mls/hr IV .Q2H ONE Rx#:[id number] Other: Weight 56.518 kg 56.518 kg On examination patient is an elderly female, in no distress. Patient is alert and awake, appears to be in mild distress because of headache and nausea and appears anxious. Patient is able to speak in sentences. However she has significant word finding problem, thought block at times. Patient has significant problem with naming, not able to name "pen, eyeglasses or the thumb". Patient can repeat very well. She has mild to moderate difficulty with writing, as when I asked her to write "today is Thursday". Patient wrote "today is today". Patient has more difficulty problem with reading. Speech however is clear with no dysarthria. On cranial nerve examination pupils are round and reactive to light, visual lam revealed complete right homonymous hemianopia. Extraocular muscles are intact with no nystagmus. Face is symmetric and tongue protrudes the midline. On muscle strength testing there is no pronator drift and the strength is normal in arms and legs distally and proximally. Reflexes are 1+ and plantars downgoing. Sensory touch is equal with no neglect on double simultaneous stable condition. No ataxia for [id number] testing. Tone and bulk of muscles normal. Gait deferred. There is no carotid bruit or murmur S1 and S2 audible. Results - Laboratory Findings CBC and BMP: 12/12/19 12:43 12/12/19 12:43 Abnormal Lab Findings: Abnormal Labs 12/12/19 12/12/19 12/12/19 12:43 12:43 12:43 WBC 11.1 H MCH 24.1 L MCHC 29.8 L RDW 15.6 H Plt Count 596 H Neutrophils # 8.6 H APTT 21.6 L BUN 30 H Glucose [address] Calcium 10.3 H Alkaline Phosphatase 129 H Urine Ketones 12/12/19 12/12/19 12:43 13:45 WBC MCH MCHC RDW Plt Count Neutrophils # APTT BUN Glucose Plasma Lactic Acid Rd 4.1 H* Calcium Alkaline Phosphatase Urine Ketones Trace H Assessment and Plan Assessment: * Probable acute ischemic CVA, manifesting with some expressive aphasia, and complete right homonymous hemianopia. Patient is status post intravenous TPA. Patient was not a candidate for mechanical thrombectomy. Her current NIH stroke scale (post TPA) is 3. 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 Rule out cardioembolic source, rule out per paroxysmal atrial fibrillation. * Hypertension, uncontrolled * Diabetes, not well controlled Plan: * Patient is status post TPA, already showing signs of clinical improvement. Patient had almost complete expressive aphasia at onset, but now she is able to speak sentences, have become more fluent, although still with significant paraphasic errors, naming difficulty and impairment of reading and writing. Also has significant right homonymous hemianopia. * Patient to follow post-TPA orders. Neuro checks every 1 hour 4 and then every 2 hours for 24 hours post-TPA. * Suggest maintaining systolic blood pressure between 180-140 mm Hg. * We will check 2-D echo with bubble study to rule out PFO. * We will check MRI of the brain to evaluate for the extent of stroke. * We will check fasting a.m. lipid panel and hemoglobin A1c. * Continue telemetry monitoring. * No antiplatelets or anticoagulants for 24 hours post-TPA. * If 24 hours post-TPA CT head negative for bleed, then we will start aspirin 325 mg daily. * Gastric ulcer and DVT prophylaxis. * Speech therapy. * Discussed with patient's family in detail.
[2019-12-12] MEDS: SODIUM CHLORIDE 0.9% 1,000 ML IV SCH (16:48)
[2019-12-12] MEDS: INSULIN ASPART (NovoLOG) 100 UNIT/ML VIAL SQ SCH ×2 (17:32→21:20)
[2019-12-12] MEDS: ONDANSETRON 4 MG/2 ML VIAL IVP PRN (17:32)
[2019-12-12 17:36] LABS: Glucose,Whole Blood 254 mg/dL (75-99)
[2019-12-12] MEDS: HYDROcodone/APAP 7.5-325MG 1 EACH TAB PO PRN ×2 (17:48→21:25)
--- NOTE | 2019-12-12 20:45 | P.HPIM ---
History of Present Illness H&P Date: 12/12/19 Chief Complaint: Speech and difficulty and confusion Patient is a 69-year-old female with a known history of hypertension, diabetes type 2 insulin-dependent, recent history of bladder surgery on 11/25/2018 was brought to the hospital by her due to complaints of headache and confusion and unable to find words which started around 10 AM this morning. Around 4 AM patient woke up from bed to go to the bathroom and felt headaches which got worse and later patient became confused. She slept for a while and after she woke up around 10 AM she was unable to talk and patient was brought to the hospital. Patient was also having vision problems mainly in the right eye and unable to focus. Denied any focal weakness. No facial droop noted. When she come to the hospital around 4 PM her NIH score was 9. Patient was seen by stroke team and recommended TPA which was given in the ER. Patient did improve symptomatically after TPA. Patient's blood pressure was uncontrolled with SBP greater than 218 mmHg and was also sinus tachycardic. Patient was started on nicardipine drip and also patient was given pain medications which seem to improve her blood pressure as well. CT head showed no acute intracranial process. Mild to moderate diffuse cerebral atrophy and minimal chronic small vessel ischemic changes. CT head and neck was done showed no significant stenosis. Next and EKG showed sinus tachycardia Chest x-ray showed suspect cardiomegaly Lactic acid 4.1 on admission, calcium 10.3 UA negative for infection Platelets 596 k, WBC 11.1 hemoglobin 12.3 Patient was also hyperglycemic on admission with blood sugar in 200s, acetone negative Review of Systems Constitutional: Patient denies any fever or chills . No generalized weakness or weight loss. Abdomen: Patient denied nausea vomiting and diarrhea and abdominal pain. Cardiovascular: Patient denies any chest pain or short of breath no palpitations. Respiratory: patient denied any cough is from production. No shortness of breath Neurologic: Patient denied any numbness or tingling. Patient does have headache, confusion and visual problems. Unable to talk. Musculoskeletal: Patient denies any complaints of joint swelling or deformity. Skin: Negative Psychiatric: Negative Endocrine: No heat or cold intolerance. No recent weight gain. Genitourinary: No dysuria or hematuria. All other 14 point ROS negative except the above Past Medical History Past Medical History: Diabetes Mellitus, Hyperlipidemia, Hypertension History of Any Multi-Drug Resistant Organisms: None Reported Past Surgical History: Hysterectomy Additional Past Surgical History / Comment(s): laminectomy, bunionectomy, Past Anesthesia/Blood Transfusion Reactions: No Reported Reaction Past Psychological History: No Psychological Hx Reported Smoking Status: Never smoker Past Alcohol Use History: None Reported Past Drug Use History: None Reported - Past Family History Father Family Medical History: Diabetes Mellitus Mother Family Medical History: Hypertension, Rheumatoid Arthritis (RA) Medications and Allergies Home Medications Medication Instructions Recorded Confirmed Type Biotin 5 mg PO DAILY 04/05/19 12/12/19 History Esomeprazole Magnesium [NexIUM] 40 mg PO DAILY 04/05/19 12/12/19 History Insulin Degludec [Tresiba] 6 units SQ HS 04/05/19 12/12/19 History Lisinopril 20 mg PO DAILY 04/05/19 12/12/19 History Naproxen Sodium [Aleve] 220 mg PO BID 04/05/19 12/12/19 History Pravastatin Sodium [Pravachol] 20 mg PO HS 04/05/19 12/12/19 History Ubidecarenone [Co Q-10] 100 mg PO DAILY 04/05/19 12/12/19 History Vit C/E/Zn/Coppr/Lutein/Zeaxan 1 cap PO BID 04/05/19 12/12/19 History [Preservision Areds 2 Softgel] metFORMIN HCL 1,000 mg PO BID 04/05/19 12/12/19 History Eszopiclone [Lunesta] 2 mg PO HS 12/12/19 12/12/19 History Furosemide [Lasix] 20 mg PO DAILY 12/12/19 12/12/19 History Insulin Aspart [NovoLOG Flexpen] See Protocol SQ AC-TID 12/12/19 12/12/19 History Oxybutynin Chloride [Ditropan] 5 mg PO TID PRN 12/12/19 12/12/19 History Potassium Chloride 10 meq PO DAILY 12/12/19 12/12/19 History Allergies Allergy/AdvReac Type Severity Reaction Status Date / Time codeine AdvReac Nausea & Verified 12/12/19 15:52 Vomiting nickel AdvReac Rash/Hives Verified 12/12/19 15:52 thimerosal AdvReac Rash/Hives Verified 12/12/19 15:52 Physical Exam Vitals: Vital Signs Temp Pulse Resp BP Pulse Ox 12/12/19 15:30 141 H 19 154/82 96 12/12/19 15:15 144 H 18 148/74 94 L 12/12/19 15:00 98.4 F 147 H 19 151/72 95 12/12/19 14:45 151 H 20 153/91 97 12/12/19 14:30 148 H 19 152/67 97 12/12/19 14:15 98.1 F 149 H 19 155/68 97 12/12/19 14:00 154 H 21 166/71 98 12/12/19 13:45 158 H 16 167/78 96 12/12/19 13:44 160 H 185/84 95 12/12/19 13:40 160 H 185 H 176/87 12/12/19 13:34 158 H 16 164/78 99 12/12/19 13:31 144 H 16 185/91 98 12/12/19 13:27 201/97 12/12/19 13:15 201/100 12/12/19 12:29 98.7 F 140 H 22 218/100 98 Intake and Output 12/12/19 12/12/19 12/12/19 06:59 14:59 22:59 Intake Total 163.750 Balance 163.750 Intake: Intake, IV Titration 163.750 Amount niCARdipine 20 mg In 163.750 Sodium Chloride 0.9% 192 ml @ 10 MG/HR 100 mls/hr IV .Q2H ONE Rx#:[id number] Other: Weight 56.518 kg PHYSICAL EXAMINATION: Patient is lying in the bed comfortably, no acute distress, awake alert and oriented.. HEENT: Normocephalic. Neck is supple. Pupils reactive. Nostrils clear. Oral cavity is moist. Ears reveal no drainage. Neck reveals no JVD, carotid bruits, or thyromegaly. CHEST EXAMINATION: Trachea is central. Symmetrical expansion. Lung lam clear to auscultation and percussion. CARDIAC: Normal S1, S2 with no gallops. No murmurs . Sinus tachycardia ABDOMEN: Soft. Bowel sounds normal. No organomegaly. No abdominal bruits. Extremities: reveal no edema. No clubbing or cyanosis Neurologically awake, alert, oriented x3 with well-coordinated movements. No focal deficits noted Skin: No rash or skin lesions. Psychiatric: Coperative. Nonsuicidal Musculoskeletal: No joint swelling or deformity. Normal range of motion. Results CBC & Chem 7: 12/12/19 12:43 12/12/19 12:43 Labs: Abnormal Lab Results - Last 24 Hours (Table) 12/12/19 12/12/19 12/12/19 Range/Units 12:43 12:43 12:43 WBC 11.1 H (3.8-10.6) k/uL MCH 24.1 L (25.0-35.0) pg MCHC 29.8 L (31.0-37.0) g/dL RDW 15.6 H (11.5-15.5) % Plt Count 596 H (150-450) k/uL Neutrophils # 8.6 H (1.3-7.7) k/uL APTT 21.6 L (22.0-30.0) sec BUN 30 H (7-17) mg/dL Glucose 177 H (74-99) mg/dL Plasma Lactic Acid Rd (0.7-2.0) mmol/L Calcium 10.3 H (8.4-10.2) mg/dL Alkaline Phosphatase 129 H (38-126) U/L Urine Ketones (Negative) 12/12/19 12/12/19 Range/Units 12:43 13:45 WBC (3.8-10.6) k/uL MCH (25.0-35.0) pg MCHC (31.0-37.0) g/dL RDW (11.5-15.5) % Plt Count (150-450) k/uL Neutrophils # (1.3-7.7) k/uL APTT (22.0-30.0) sec BUN (7-17) mg/dL Glucose (74-99) mg/dL Plasma Lactic Acid Rd 4.1 H* (0.7-2.0) mmol/L Calcium (8.4-10.2) mg/dL Alkaline Phosphatase (38-126) U/L Urine Ketones Trace H (Negative) Thrombosis Risk Factor Assmnt - DVT/VTE Prophylaxis DVT/VTE Prophylaxis: Pharmacologic Prophylaxis ordered Assessment and Plan Assessment: Expressive aphasia and right-sided visual problems likely due to acute CVA. Status post TPA. Hypertension urgency on admission Severe lactic acidosis 4.1 Dehydration and volume depletion Mild hypercalcemia secondary to dehydration Hyperglycemia with uncontrolled diabetes type 2 insulin-dependent Recent history of bladder surgery on 11/25/2018 DVT prophylaxis Plan: Patient is status post TPA and did improve symptomatically. Patient did have improvement in speech and visual problems. Denied any focal weakness. Patient will be started on IV hydration and blood sugar control with Levemir and insulin sliding scale. Continue with telemetry monitoring. Continue with neuro checks every hour and monitor the patient MICU. Neurology has seen the patient and complete stroke workup including 2-D echocardiogram with bubble study, MRI of the brain and lipid panel and his B A1c was ordered. Speech and swallow ventilation. GI and DVT prophylaxis. Further recommendations based on the clinical course. Discussed with the family at bedside in detail. Time with Patient: Greater than 30
[2019-12-12] MEDS ORDERED: INSULIN DETEMIR (LEVEMIR) 100 UNIT/ML SYR SQ SCH (21:00)
[2019-12-12 21:06] LABS: Glucose,Whole Blood 160 mg/dL (75-99)
[2019-12-12] MEDS: HEPARIN SODIUM,PORCINE 5,000 UNIT/ML 1 ML VIAL SQ SCH (21:11)
[2019-12-12] MEDS: ATORVASTATIN 80 MG TAB PO SCH (21:20)
[2019-12-12] MEDS: INSULIN DETEMIR (LEVEMIR) 100 UNIT/ML SYR SQ SCH (21:20)
[2019-12-13 00:34] LABS: Hemoglobin A1C 7.7 % (4.0-6.0)
[2019-12-13] MEDS: ONDANSETRON 4 MG/2 ML VIAL IVP PRN (03:19)
[2019-12-13] MEDS: HYDROcodone/APAP 7.5-325MG 1 EACH TAB PO PRN ×2 (03:20→10:11)
[2019-12-13 05:11] LABS: Basophils # (A) 0.1 k/uL (0-0.2); Basophils % (A) 1 %; Eosinophils # (A) 0.4 k/uL (0-0.7); Eosinophils % (A) 5 %; HCT 31.6 % (34.0-46.0); Hypochromasia Marked; Lymphocytes # (A) 1.7 k/uL (1.0-4.8); Lymphocytes % (A) 24 %; MCH 24.1 pg (25.0-35.0); MCHC 29.5 g/dL (31.0-37.0); MCV 81.6 fL (80.0-100.0); Mean Platelet Volume 6.6; Monocytes # (A) 0.7 k/uL (0-1.0); Monocytes % (A) 10 %; Neutrophils # (A) 4.1 k/uL (1.3-7.7); Neutrophils % (A) 57 %; Platelet Count 477 k/uL (150-450); RBC 3.87 m/uL (3.80-5.40); WBC 7.3 k/uL (3.8-10.6)
[2019-12-13 05:18] LABS: HGB 9.3 gm/dL (11.4-16.0)
[2019-12-13 05:21] LABS: ALT 22 U/L (4-34); AST 22 U/L (14-36); African American GFR (CKD) >90 (>60 ml/min/1.73 sqM); Albumin 3.5 g/dL (3.5-5.0); Alkaline Phosphatase 76 U/L (38-126); Anion Gap 3 mmol/L; Blood Urea Nitrogen 22 mg/dL (7-17); Calcium 8.9 mg/dL (8.4-10.2); Carbon Dioxide 31 mmol/L (22-30); Chloride 105 mmol/L (98-107); Cholesterol 118 mg/dL (<200); Glucose 53 mg/dL (74-99); HDL Cholesterol 67 mg/dL (40-60); LDL Cholesterol,Calculated 38 mg/dL (0-99); Non-African American GFR(CKD) >90 (>60 ml/min/1.73 sqM); Potassium 4.5 mmol/L (3.5-5.1); Sodium 139 mmol/L (137-145); Total Bilirubin 0.4 mg/dL (0.2-1.3); Total Protein 5.9 g/dL (6.3-8.2); Triglycerides 67 mg/dL (<150)
[2019-12-13 05:28] LABS: Glucose,Whole Blood 72 mg/dL (75-99)
[2019-12-13 07:07] LABS: Glucose,Whole Blood 79 mg/dL (75-99)
[2019-12-13] MEDS: INSULIN ASPART (NovoLOG) 100 UNIT/ML VIAL SQ SCH ×4 (07:32→20:33)
[2019-12-13] MEDS: SODIUM CHLORIDE 0.9% 1,000 ML IV SCH ×2 (07:34→18:19)
[2019-12-13] MEDS: PANTOPRAZOLE 40 MG TABLET PO SCH (08:20)
[2019-12-13] MEDS: HEPARIN SODIUM,PORCINE 5,000 UNIT/ML 1 ML VIAL SQ SCH (08:21)
--- NOTE | 2019-12-13 08:46 | CONS ---
CONSULTATION PULMONARY/CRITICAL CARE CONSULTATION: DATE OF SERVICE: 12/13/2019 This is a 69-year-old female with a history of diabetes, hypertension, hyperlipidemia, and gastroesophageal reflux disease, who presented to the emergency department with difficulty speaking. She had difficulty getting words out of her mouth and saying what she wanted to say. She describes both aphasic and dysphagia. In addition, she had a hard time texting on her phone. For that reason, she was brought into the emergency room to be evaluated. She was thought to clearly have stroke symptoms. She had a CT and angio CT, both of which showed nothing acute. Some chronic small-vessel disease. She received tPA. She apparently did very well and this morning she is back to normal. She was placed in the ICU just for monitoring. Neurology is available to see the patient. I made sure that before the patient came to the ICU. Anyway, the patient is doing much better today. Currently, she is on no supplemental oxygen. She is getting saline at 75 mL an hour. She was admitted yesterday through the emergency department. I was notified by the ER physician. Currently, she states that she is feeling well. She denies any visual disturbance. She denies any weakness to her extremities. There is no numbness or tingling. Her speech issue has apparently resolved itself. . HOME MEDICATIONS: Include biotin, Nexium, insulin, lisinopril, Aleve, Pravachol, coenzyme Q, eye vitamins, metformin, Lunesta, Lasix, insulin NovoLog FlexPen, Ditropan, and potassium chloride. ALLERGIES: CODEINE, NICKEL and THIMEROSAL. MEDICAL HISTORY: Includes diabetes, hypertension, hyperlipidemia, and gastroesophageal reflux disease. SURGICAL HISTORY: Includes laminectomy, bunionectomy, and hysterectomy. SOCIAL HISTORY: Negative for tobacco, alcohol or illicit drug use. FAMILY HISTORY: Positive for a father with diabetes and a mother with hypertension and rheumatoid arthritis. REVIEW OF SYSTEMS: CONSTITUTIONAL: Negative. NEUROLOGIC: Aphagia/dysphagia, resolved. HEENT: Negative. CARDIOVASCULAR: Negative. PULMONARY: Negative. GI: Negative. : Negative. RHEUMATOLOGIC: Negative. IMMUNOLOGIC: Negative ENDOCRINOLOGIC: Negative. DERMATOLOGIC: Negative. Current vital signs are reviewed. Her temperature is 98.3, heart rate 86, respiratory rate 12, blood pressure 134/62 mean 86, room air saturation between 94% and 97%. Appears in no acute distress. HEENT: Examination is grossly unremarkable. Mucous membranes are moist. No supplemental oxygen. NECK: Supple, full range of motion. No adenopathy or thyromegaly. Neck veins are flat. CARDIOVASCULAR: Examination reveals regular rhythm and rate. S1, S2 normal. No S3, S4, or murmur. LUNGS: Reveal clear breath sounds. No wheezes, rhonchi, or crackles. ABDOMEN: Soft, bowel sounds are heard. EXTREMITIES: Intact. No cyanosis, clubbing, or edema. SKIN: Without rash. NEUROLOGIC: Examination is brief but nonfocal. LABS: Reviewed. White count 7.3, hemoglobin 9.3, hematocrit 31.6, platelet count 477,000, PT, INR, and PTT all normal, sodium 139, potassium 4.5, chloride is 105, CO2 is 31, anion gap is 3. BUN and creatinine were 22 and 0.55. Hemoglobin A1c was 7.7, calcium was 8.9. Troponin was less than 0.012. Cholesterol was 118. Urine was negative. Chest x-ray was consistent with cardiomegaly. A brain CT showed no acute intracranial hemorrhage or midline shift. There is borderline moderate diffuse cerebral atrophy and minimal chronic small-vessel ischemic changes. Angiography CT showed no significant no significant stenosis in the common or internal carotid arteries bilaterally. There is no obvious stenosis or aneurysmal change at the level of the [place]. Dr. Godinez saw the patient, the neurologist and his impression was that she probably had an acute ischemic CVA manifesting itself of primarily expressive aphasia and complete right hemianopia. Her stroke scale score post tPA was 3. ASSESSMENT: 1. Acute ischemic CVA, status post tPA with significant improvement in the patient's speech. 2. History of hypertension. 3. History of diabetes. 4. History of hyperlipidemia. 5. History of gastroesophageal reflux disease. PLAN: The patient is going to have an MRI and 2D echo with bubble study. The patient's blood pressure needs better control. Her diabetes and needs better control. Additional recommendations and suggestions are forthcoming. Prognosis is guarded. We will continue to follow. The patient is doing well, though. Additional recommendations and suggestions are forthcoming. MMODL / IJN: [id number] /
[2019-12-13] MEDS ORDERED: LISINOPRIL 10 MG TAB PO SCH (10:30)
--- NOTE | 2019-12-13 10:44 | P.PN ---
Subjective Progress Note Date: 12/13/19 Patient doing much better. Neurological symptoms have all resolved. Headache is much improved, 5/10. Blood pressure is better controlled. No new neurological symptoms. Denies numbness tingling weakness diplopia. Objective - Vital Signs Vital signs: Vital Signs Temp 97.9 F 12/13/19 08:00 Pulse 76 12/13/19 10:00 Resp 18 12/13/19 10:00 BP 186/90 12/13/19 10:00 Pulse Ox 95 12/13/19 08:00 Intake & Output 12/12/19 12/13/19 12/13/19 18:59 06:59 18:59 Intake Total 523.750 825 550 Output Total 350 1100 800 Balance 173.750 -275 -250 Weight 54.8 kg 53.5 kg Intake: IV 300 825 300 Sodium Chloride 0.9% 1, 300 825 300 000 ml @ 75 mls/hr IV . [id number] DAYAN Rx#:[id number] Intake, IV Titration 163.750 Amount niCARdipine 20 mg In 163.750 Sodium Chloride 0.9% 192 ml @ 10 MG/HR 100 mls/hr IV .Q2H ONE Rx#:[id number] Oral 250 Tube Feeding 60 Output: Urine 350 1100 800 Other: # Voids 0 3 - Exam On examination patient's mental status, speech and language functions are normal. Patient able to name, repeat, read, write without difficulty. No paraphasic errors, or word finding problem. On cranial nerve examination pupils are round and reactive to light. Visual lam are full on confrontation with no neglect. Extraocular muscles intact. No nystagmus. Face is symmetric and tongue protrudes the midline. Palatal elevation sensation normal. On muscle strength testing there is no pronator drift and the strength is normal in arms and legs distally and proximally. Reflexes are 1+ and plantars downgoing. Sensory touch is equal with no neglect on double simultaneous stimulation. No ataxia for [id number] testing. Tone and bulk of muscles normal. Gait deferred. - Labs CBC & Chem 7: 12/13/19 04:49 12/13/19 04:46 Labs: Abnormal Lab Results - Last 24 Hours (Table) 12/12/19 12/12/19 12/12/19 Range/Units 12:43 12:43 12:43 WBC 11.1 H (3.8-10.6) k/uL Hgb (11.4-16.0) gm/dL Hct (34.0-46.0) % MCH 24.1 L (25.0-35.0) pg MCHC 29.8 L (31.0-37.0) g/dL RDW 15.6 H (11.5-15.5) % Plt Count 596 H (150-450) k/uL Neutrophils # 8.6 H (1.3-7.7) k/uL APTT 21.6 L (22.0-30.0) sec Carbon Dioxide (22-30) mmol/L BUN 30 H (7-17) mg/dL Glucose 177 H (74-99) mg/dL POC Glucose (mg/dL) (75-99) mg/dL Hemoglobin A1c (4.0-6.0) % Plasma Lactic Acid Rd (0.7-2.0) mmol/L Calcium 10.3 H (8.4-10.2) mg/dL Alkaline Phosphatase 129 H (38-126) U/L Total Protein (6.3-8.2) g/dL HDL Cholesterol (40-60) mg/dL Urine Ketones (Negative) 12/12/19 12/12/19 12/12/19 Range/Units 12:43 12:43 13:45 WBC (3.8-10.6) k/uL Hgb (11.4-16.0) gm/dL Hct (34.0-46.0) % MCH (25.0-35.0) pg MCHC (31.0-37.0) g/dL RDW (11.5-15.5) % Plt Count (150-450) k/uL Neutrophils # (1.3-7.7) k/uL APTT (22.0-30.0) sec Carbon Dioxide (22-30) mmol/L BUN (7-17) mg/dL Glucose (74-99) mg/dL POC Glucose (mg/dL) (75-99) mg/dL Hemoglobin A1c 7.7 H (4.0-6.0) % Plasma Lactic Acid Rd 4.1 H* (0.7-2.0) mmol/L Calcium (8.4-10.2) mg/dL Alkaline Phosphatase (38-126) U/L Total Protein (6.3-8.2) g/dL HDL Cholesterol (40-60) mg/dL Urine Ketones Trace H (Negative) 12/12/19 12/12/19 12/12/19 Range/Units 16:01 17:27 21:04 WBC (3.8-10.6) k/uL Hgb (11.4-16.0) gm/dL Hct (34.0-46.0) % MCH (25.0-35.0) pg MCHC (31.0-37.0) g/dL RDW (11.5-15.5) % Plt Count (150-450) k/uL Neutrophils # (1.3-7.7) k/uL APTT (22.0-30.0) sec Carbon Dioxide (22-30) mmol/L BUN (7-17) mg/dL Glucose (74-99) mg/dL POC Glucose (mg/dL) 247 H 254 H 160 H (75-99) mg/dL Hemoglobin A1c (4.0-6.0) % Plasma Lactic Acid Rd (0.7-2.0) mmol/L Calcium (8.4-10.2) mg/dL Alkaline Phosphatase (38-126) U/L Total Protein (6.3-8.2) g/dL HDL Cholesterol (40-60) mg/dL Urine Ketones (Negative) 12/13/19 12/13/19 12/13/19 Range/Units 04:46 04:49 05:27 WBC (3.8-10.6) k/uL Hgb 9.3 L D (11.4-16.0) gm/dL Hct 31.6 L (34.0-46.0) % MCH 24.1 L (25.0-35.0) pg MCHC 29.5 L (31.0-37.0) g/dL RDW 16.0 H (11.5-15.5) % Plt Count 477 H (150-450) k/uL Neutrophils # (1.3-7.7) k/uL APTT (22.0-30.0) sec Carbon Dioxide 31 H (22-30) mmol/L BUN 22 H (7-17) mg/dL Glucose 53 L (74-99) mg/dL POC Glucose (mg/dL) 72 L (75-99) mg/dL Hemoglobin A1c (4.0-6.0) % Plasma Lactic Acid Rd (0.7-2.0) mmol/L Calcium (8.4-10.2) mg/dL Alkaline Phosphatase (38-126) U/L Total Protein 5.9 L (6.3-8.2) g/dL HDL Cholesterol 67 H (40-60) mg/dL Urine Ketones (Negative) Assessment and Plan Assessment: * Possible CVA, manifesting with expressive aphasia, and complete right homonymous hemianopia. Patient is status post intravenous TPA. Patient has remarkably improved. Today her NIH stroke scale is 0. 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 Rule out cardioembolic source, rule out per paroxysmal atrial fibrillation. Complex migraine also in the differential, but patient does not have any previous history of migraines or family history of olaf hayden. * Cephalgia, probably due to uncontrolled HTN. * Hypertension, uncontrolled * Diabetes, not well controlled Plan: * Patient has remarkably improved. Her NIH stroke scale is 0. * Await 2-D echo with bubble study to rule out PFO. * Await MRI of the brain to evaluate for possible stroke. Patient has a mesh placed for bladder suspension recently. Need clearance before patient can get MRI. * Fasting a.m. lipid panel showed cholesterol 118, LDL 38, HDL 67, triglycerides 67. Continue Lipitor. Hemoglobin A1c 7.7, better controlled than previously. * Continue telemetry monitoring. * No antiplatelets or anticoagulants for 24 hours post-TPA. * If 24 hours post-TPA CT head negative for bleed, then we will start aspirin 325 mg daily. * Keep blood pressure between 160-140 systolic. * Gastric ulcer and DVT prophylaxis. * Discussed with patient's family in detail.
--- NOTE | 2019-12-13 11:50 | XR ---
AP pelvis HISTORY: Pre-MRI Single frontal view of the pelvis Bone mineralization is normal, no radiopaque foreign body. No pathologic calcification. IMPRESSION: No radiopaque foreign body.
[2019-12-13 12:06] LABS: Glucose,Whole Blood 139 mg/dL (75-99)
--- NOTE | 2019-12-13 12:36 | ECHOF ---
Referral Reason:CVA MEASUREMENTS -------- HEIGHT: 157.5 cm WEIGHT: 53.1 kg BP: 144/70 RVIDd: 2.3 cm (< 3.3) IVSd: 1.0 cm (0.6 - 1.1) LVIDd: 3.8 cm (3.9 - 5.3) LVPWd: 1.1 cm (0.6 - 1.1) IVSs: 1.6 cm LVIDs: 2.6 cm LVPWs: 1.4 cm LA Diam: 2.8 cm (2.7 - 3.8) LAESV Index (A-L): 25.71 ml/m Ao Diam: 2.7 cm (2.0 - 3.7) AV Cusp: 1.9 cm (1.5 - 2.6) MV EXCURSION: 17.766 mm (> 18.000) MV EF SLOPE: 142 mm/s (70 - 150) EPSS: 0.5 cm MV E Sergey: 0.80 m/s MV DecT: 210 ms MV A Sergey: 1.13 m/s MV E/A Ratio: 0.71 RAP: 5.00 mmHg RVSP: 36.30 mmHg FINDINGS -------- Sinus rhythm. This was a technically good study. The left ventricular size is normal. Left ventricular wall thickness is normal. Overall left vent ricular systolic function is low-normal with, an EF between 50 - 55 %. The right ventricle is normal in size. Normal LA size by volume 22+/-6 ml/m2. The right atrium is normal in size. Contrast study was performed with 2 iv injections of 8 ccs of agitated normal saline, at rest, and wi th cough. Interatrial and interventricular septum intact. no pfo The aortic valve is trileaflet and appears structurally normal. Mild mitral regurgitation is present. Mild tricuspid regurgitation present. There is mild pulmonary hypertension. The right ventricular systolic pressure, as measured by Doppler, is 36.30mmHg. There is no pulmonic regurgitation present. The aortic root size is normal. Normal inferior vena cava with normal inspiratory collapse consistent with estimated right atrial pre ssure of 5 mmHg. The inferior vena cava is mildly dilated. There is a moderate, generalized pericardial effusion present. CONCLUSIONS -------- 1. Sinus rhythm. 2. This was a technically good study. 3. The left ventricular size is normal. 4. Left ventricular wall thickness is normal. 5. Overall left ventricular systolic function is low-normal with, an EF between 50 - 55 %. 6. The right ventricle is normal in size. 7. Normal LA size by volume 22+/-6 ml/m2. 8. The right atrium is normal in size. 9. Contrast study was performed with 2 iv injections of 8 ccs of agitated normal saline, at rest, and with cough. 10. Interatrial and interventricular septum intact. 11. The aortic valve is trileaflet and appears structurally normal. 12. Mild mitral regurgitation is present. 13. Mild tricuspid regurgitation present. 14. There is mild pulmonary hypertension. 15. The right ventricular systolic pressure, as measured by Doppler, is 36.30mmHg. 16. There is no pulmonic regurgitation present. 17. The aortic root size is normal. 18. Normal inferior vena cava with normal inspiratory collapse consistent with estimated right atrial pressure of 5 mmHg. 19. The inferior vena cava is mildly dilated. 20. There is a moderate, generalized pericardial effusion present. ANDROID DEVELOPER: Yen Morris RDCS
--- NOTE | 2019-12-13 14:06 | CDI ---
Documentation Clarification Form Date: 12/13/2019 02:01:57 PM From: Neeru Wallace RN, CCDS Admit Date: 12/12/2019 02:36:00 PM Patient Name: Carina White Visit Number: [id number] ATTENTION: The Clinical Documentation Specialists (CDI) and [facility] Coding Staff appreciate your assistance in clarifying documentation. Please respond to the clarification below the line at the bottom and electronically sign. The CDI & [facility] Coding staff will review the response and follow-up if needed. Please note: Queries are made part of the Legal Health Record. If you have any questions, please contact the author of this message via ITS. Dr. Evita Aguilar declining Hgb and Hct has been noted and lacks specificity to accurately reflect your patients severity of condition and clarification is needed. History/Risk Factors: Pt was a + embolic CVA this admission and received TPA Clinical indicators: Hemoglobin: 12.3/9.3 Hematocrit: 41.3/31.6 Treatment: monitoring labs In order to capture the severity of condition, please clarify the clinical significance of the declining Hgb and Hct and etiology if known: Acute blood loss anemia Acute on chronic blood loss anemia Chronic blood loss anemia Iron deficiency anemia Drug induced anemia Nutritional anemia Anemia of chronic disease Unable to determine Other, please specify (Last Revision: August 2017) Acute blood loss anemia MTDD
--- NOTE | 2019-12-13 14:15 | MR ---
EXAMINATION TYPE: MR brain wo con DATE OF EXAM: 12/13/2019 COMPARISON: CT scan 12/12/2019 HISTORY: CVA TECHNIQUE: T1-weighted sagittal, T2, FLAIR, and diffusion axial, and T2 coronal coronal views of the brain are submitted. FINDINGS: There is no evidence of acute ischemia. There is mild to moderate generalized degenerative change wit h confluent as well as multiple focal areas of abnormal white matter signal which is nonspecific but are most typical of remote microvascular ischemia.. Craniocervical junction maintained. Sella turcica has a normal appearance. No cerebellopontine angle mass. Changes of chronic sinusitis noted. Nodular density seen within the b tamika of the right lateral ventricle likely represents a prominent choroid plexus. There is a partially empty sella turcica. Craniocervical junction maintained. Abnormal signal within the basal ganglia li tammy represent prominent Virchow-Maikel spaces, although a tiny remote lacunar infarcts are not exclud ed. IMPRESSION: 1. No acute ischemic change. Degenerative and nonspecific white matter changes most typical remote is chemia noted. 2. Subcentimeter nodular density within the right lateral ventricle likely represents a prominent cor relate plexus and could be correlated with short-term follow-up 3-6 month MRI to confirm stability wi th contrast. 3. Partially empty sella turcica
--- NOTE | 2019-12-13 14:15 | MR ---
EXAMINATION TYPE: MR angio head wo con DATE OF EXAM: 12/13/2019 COMPARISON: 12/12/2019 CTA HISTORY: CVA TECHNIQUE: Utilizing 3-D [id number] intracranial MRA of the igiugig of Katz was performed. FINDINGS: The vertebrobasilar and carotid systems are patent. There is no sizable aneurysm or vascular malform ation. There is a hypoplastic left A1 segment with filling of A2 segment due to patent anterior comm unicating artery. Right vertebral artery is dominant. Posterior cerebral arteries originate from the anterior circulati on bilaterally. The visualized anterior, middle, and posterior cerebral arteries appear to be patent IMPRESSION: 1. No evidence of vascular malformation or sizable aneurysm.
[2019-12-13 16:56] LABS: Glucose,Whole Blood 153 mg/dL (75-99)
[2019-12-13] MEDS: BUTALB/APAP/CAFF 50-325-40MG TAB PO PRN (17:07)
[2019-12-13] MEDS: ASPIRIN 81 MG PO SCH (17:13)
[2019-12-13 20:30] LABS: Glucose,Whole Blood 263 mg/dL (75-99)
[2019-12-13] MEDS: LISINOPRIL 10 MG TAB PO SCH (20:32)
[2019-12-13] MEDS: ATORVASTATIN 80 MG TAB PO SCH (20:33)
[2019-12-13] MEDS: INSULIN DETEMIR (LEVEMIR) 100 UNIT/ML SYR SQ SCH (20:33)
[2019-12-14 05:03] LABS: HCT 33.7 % (34.0-46.0); HGB 10.1 gm/dL (11.4-16.0); Hypochromasia Moderate; MCH 24.4 pg (25.0-35.0); MCHC 29.9 g/dL (31.0-37.0); MCV 81.7 fL (80.0-100.0); Mean Platelet Volume 6.7; Platelet Count 470 k/uL (150-450); RBC 4.12 m/uL (3.80-5.40); RDW 15.9 % (11.5-15.5)
[2019-12-14 05:24] LABS: African American GFR (CKD) >90 (>60 ml/min/1.73 sqM); Anion Gap 6 mmol/L; Blood Urea Nitrogen 15 mg/dL (7-17); Calcium 9.3 mg/dL (8.4-10.2); Carbon Dioxide 26 mmol/L (22-30); Chloride 106 mmol/L (98-107); Glucose 69 mg/dL (74-99); Non-African American GFR(CKD) >90 (>60 ml/min/1.73 sqM); Potassium 4.2 mmol/L (3.5-5.1); Sodium 138 mmol/L (137-145)
[2019-12-14 05:50] LABS: Glucose,Whole Blood 101 mg/dL (75-99)
[2019-12-14] MEDS: INSULIN ASPART (NovoLOG) 100 UNIT/ML VIAL SQ SCH ×4 (06:25→21:31)
[2019-12-14] MEDS: PANTOPRAZOLE 40 MG TABLET PO SCH (08:11)
[2019-12-14] MEDS: ASPIRIN 81 MG PO SCH (08:11)
[2019-12-14] MEDS: LISINOPRIL 10 MG TAB PO SCH (08:11)
--- NOTE | 2019-12-14 09:48 | P.PN ---
Subjective Progress Note Date: 12/14/19 Principal diagnosis: Acute ischemic CVA, status TPA with improvement in patient's speech On 12/14/2019 patient seen in follow-up in the intensive care unit, she is awake and alert, oriented 3, neurologically intact, no lateralizing deficits, no speech difficulty, no sensory deficits. No difficulty breathing, no chest pain, vital signs are stable, patient is on room air, with a pulse ox of 96%, hemodynamically stable, afebrile, lung sounds are clear to auscultation, she is in sinus mechanism on the monitor. Brain MRI was completed showing no evidence of acute ischemic change, degenerative and nonspecific white matter changes most typical of remote ischemia, please refer to the MRI brain for full report. Neurology is following. No acute issues overnight, echocardiogram was completed showing EF of 50-55%, mild tricuspid regurgitation, mild pulmonary hypertension, with right-sided pressures of 36.3 mmHg. And there was a moderate generalized pericardial effusion noted, and cardiology is following. Blood pressure stable. Today's labs have been reviewed, showing white blood cell count 6.0, hemoglobin of 10.1. Objective - Vital Signs Vital signs: Vital Signs Temp 97.9 F 12/14/19 08:00 Pulse 80 12/14/19 08:00 Resp 24 12/14/19 08:00 BP 151/68 12/14/19 08:00 Pulse Ox 96 12/14/19 08:00 Intake & Output 12/13/19 12/14/19 12/14/19 18:59 06:59 18:59 Intake Total 1150 790 120 Output Total 2300 900 0 Balance -1150 -110 120 Weight 52.1 kg Intake: IV 900 0 0 Sodium Chloride 0.9% 1, 900 0 0 000 ml @ 75 mls/hr IV . [id number] DAYAN Rx#:[id number] Oral 250 790 120 Output: Urine 2300 900 0 Other: # Voids 3 0 0 - Exam GENERAL EXAM: Alert, pleasant, 69-year-old white female on room air, comfortable in no apparent distress. HEAD: Normocephalic/atraumatic. EYES: Normal reaction of pupils, equal size. Conjunctiva pink, sclera white. NOSE: Clear with pink turbinates. THROAT: No erythema or exudates. NECK: No masses, no JVD, no thyroid enlargement, no adenopathy. CHEST: No chest wall deformity. Symmetrical expansion. LUNGS: Equal air entry with no crackles, wheeze, rhonchi or dullness. CVS: Regular rate and rhythm, normal S1 and S2, no gallops, no murmurs, no rubs ABDOMEN: Soft, nontender. No hepatosplenomegaly, normal bowel sounds, no guarding or rigidity. EXTREMITIES: No clubbing, no edema, no cyanosis, 2+ pulses and upper and lower extremities. MUSCULOSKELETAL: Muscle strength and tone normal. SPINE: No scoliosis or deformity SKIN: No rashes CENTRAL NERVOUS SYSTEM: Alert and oriented -3. No focal deficits, tone is normal in all 4 extremities. PSYCHIATRIC: Alert and oriented -3. Appropriate affect. Intact judgment and insight. - Labs CBC & Chem 7: 12/14/19 04:32 12/14/19 04:29 Labs: Abnormal Lab Results - Last 24 Hours (Table) 12/13/19 12/13/19 12/13/19 Range/Units 11:55 16:54 20:13 Hgb (11.4-16.0) gm/dL Hct (34.0-46.0) % MCH (25.0-35.0) pg MCHC (31.0-37.0) g/dL RDW (11.5-15.5) % Plt Count (150-450) k/uL Creatinine (0.52-1.04) mg/dL Glucose (74-99) mg/dL POC Glucose (mg/dL) 139 H 153 H 263 H (75-99) mg/dL 12/14/19 12/14/19 12/14/19 Range/Units 04:29 04:32 05:49 Hgb 10.1 L (11.4-16.0) gm/dL Hct 33.7 L (34.0-46.0) % MCH 24.4 L (25.0-35.0) pg MCHC 29.9 L (31.0-37.0) g/dL RDW 15.9 H (11.5-15.5) % Plt Count 470 H (150-450) k/uL Creatinine 0.48 L (0.52-1.04) mg/dL Glucose 69 L (74-99) mg/dL POC Glucose (mg/dL) 101 H (75-99) mg/dL Assessment and Plan Plan: Assessment: #1. Acute ischemic CVA, status post TPA infusion with significant improvement in the patient's speech #2. Moderate-sized generalized pericardial effusion #3. Hypertension #4. Hyperlipidemia #5. History of GERD/reflux Plan: Patient remains stable, neurologically intact, no aphasia, vital signs are st able, no acute events overnight, no complaints of chest pain, hemodynamically stable, cardiology is following in regards to the pericardial effusion, otherwise patient is stable to go out of the ICU to selective care unit today. I performed a history & physical examination of the patient and discussed their management with my nurse practitioner, Tatiana Horvath. I reviewed the nurse practitioner's note and agree with the documented findings and plan of care. Lung sounds are positive for diffuse wheezes throughout the lung lam. The findings and the impression was discussed with the patient. I attest to the documentation by the nurse practitioner. Time with Patient: Less than 30
[2019-12-14] MEDS ORDERED: LISINOPRIL 5 MG TAB PO STA ×2 (10:03→12:26)
[2019-12-14 11:42] LABS: Glucose,Whole Blood 237 mg/dL (75-99)
--- NOTE | 2019-12-14 12:40 | P.CRDCN ---
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 CT angina normal. MRI of the brain does not show any acute infarct She received thrombolytics She was quite hypertensive when she first arrived in the ER She is intermittently hypertensive here No history of atrial fibrillation no symptomatology of atrial fibrillation LDL 38 she is on statins She has diabetes hypertension dyslipidemia No evidence for intracranial hemorrhage Plan Gradual blood pressure control Increase statins Implantation of a loop monitor to look for sudden episodes of atrial fibrillation Follow Dr. Canales as an outpatient See full dictation by Jeannette West Past Medical History Past Medical History: Diabetes Mellitus, Hyperlipidemia, Hypertension Additional Past Medical History / Comment(s): NIDDM type II History of Any Multi-Drug Resistant Organisms: None Reported Past Surgical History: Hysterectomy Additional Past Surgical History / Comment(s): laminectomy, bunionectomy, Past Anesthesia/Blood Transfusion Reactions: No Reported Reaction Past Psychological History: No Psychological Hx Reported Smoking Status: Never smoker Past Alcohol Use History: None Reported Past Drug Use History: None Reported - Past Family History Father Family Medical History: Diabetes Mellitus Mother Family Medical History: Hypertension, Rheumatoid Arthritis (RA) Medications and Allergies Home Medications Medication Instructions Recorded Confirmed Type Biotin 5 mg PO DAILY 04/05/19 12/12/19 History Esomeprazole Magnesium [NexIUM] 40 mg PO DAILY 04/05/19 12/12/19 History Insulin Degludec [Tresiba] 6 units SQ HS 04/05/19 12/12/19 History Lisinopril 20 mg PO DAILY 04/05/19 12/12/19 History Naproxen Sodium [Aleve] 220 mg PO BID 04/05/19 12/12/19 History Pravastatin Sodium [Pravachol] 20 mg PO HS 04/05/19 12/12/19 History Ubidecarenone [Co Q-10] 100 mg PO DAILY 04/05/19 12/12/19 History Vit C/E/Zn/Coppr/Lutein/Zeaxan 1 cap PO BID 04/05/19 12/12/19 History [Preservision Areds 2 Softgel] metFORMIN HCL 1,000 mg PO BID 04/05/19 12/12/19 History Eszopiclone [Lunesta] 2 mg PO HS 12/12/19 12/12/19 History Furosemide [Lasix] 20 mg PO DAILY 12/12/19 12/12/19 History Insulin Aspart [NovoLOG Flexpen] See Protocol SQ AC-TID 12/12/19 12/12/19 History Oxybutynin Chloride [Ditropan] 5 mg PO TID PRN 12/12/19 12/12/19 History Potassium Chloride 10 meq PO DAILY 12/12/19 12/12/19 History Allergies Allergy/AdvReac Type Severity Reaction Status Date / Time codeine AdvReac Nausea & Verified 12/12/19 15:52 Vomiting nickel AdvReac Rash/Hives Verified 12/12/19 15:52 thimerosal AdvReac Rash/Hives Verified 12/12/19 15:52 Physical Exam Vitals: Vital Signs Temp Pulse Resp BP Pulse Ox 12/14/19 12:00 98.1 F 89 13 178/91 99 12/14/19 11:00 96 20 165/84 12/14/19 10:00 97 24 144/61 12/14/19 09:00 87 18 155/61 12/14/19 08:00 97.9 F 80 24 151/68 96 12/14/19 07:00 95 20 117/64 12/14/19 06:00 74 14 156/83 12/14/19 05:00 76 11 L 146/79 12/14/19 04:00 97.8 F 75 12 112/55 98 12/14/19 03:00 70 14 144/67 93 L 12/14/19 02:00 73 13 160/78 12/14/19 01:00 69 10 L 151/76 12/14/19 00:00 97.8 F 61 12 147/70 93 L 12/13/19 23:25 64 13 162/72 12/13/19 23:00 74 18 170/72 95 12/13/19 22:00 82 17 166/85 12/13/19 21:00 87 14 174/84 97 12/13/19 20:00 71 11 L 189/84 97 12/13/19 19:00 85 21 167/80 12/13/19 18:00 83 19 150/96 12/13/19 17:00 88 19 166/92 96 12/13/19 16:00 98 F 70 17 168/83 97 12/13/19 15:00 73 19 158/72 12/13/19 14:00 86 14 172/76 12/13/19 13:00 84 16 173/74 Intake and Output 12/13/19 12/14/19 12/14/19 22:59 06:59 14:59 Intake Total 550 540 120 Output Total 800 900 0 Balance -250 -360 120 Intake: IV 300 0 0 Sodium Chloride 0.9% 1, 300 0 0 000 ml @ 75 mls/hr IV . [id number] [facility] Rx#:[id number] Oral 250 540 120 Output: Urine 800 900 0 Other: # Voids 0 0 450 Weight 52.1 kg Results 12/14/19 04:32 12/14/19 04:29 CBC 12/14/19 Range/Units 04:32 WBC 6.0 (3.8-10.6) k/uL RBC 4.12 (3.80-5.40) m/uL Hgb 10.1 L (11.4-16.0) gm/dL Hct 33.7 L (34.0-46.0) % Plt Count 470 H (150-450) k/uL Comprehensive Metabolic Panel 12/14/19 Range/Units 04:29 Sodium 138 (137-145) mmol/L Potassium 4.2 (3.5-5.1) mmol/L Chloride 106 (98-107) mmol/L Carbon Dioxide 26 (22-30) mmol/L BUN 15 (7-17) mg/dL Creatinine 0.48 L (0.52-1.04) mg/dL Glucose 69 L (74-99) mg/dL Calcium 9.3 (8.4-10.2) mg/dL Current Medications Generic Name Dose Route Start Last Admin Trade Name Freq PRN Reason Stop Dose Admin Acetaminophen/Butalbital/Caffeine 1 each 12/13/19 16:56 12/13/19 17:07 Fioricet 50-325-40 PO 1 each Q4HR PRN Administration Headache Hydrocodone Bitart/Acetaminophen 1 each 12/12/19 17:19 12/13/19 10:11 Orrtanna 7.5-325 PO 1 each Q4H PRN Administration Pain Aspirin 81 mg 12/13/19 17:00 12/14/19 08:11 Aspirin PO 81 mg DAILY DAYAN Administration Atorvastatin Calcium 80 mg 12/12/19 21:00 12/13/19 20:33 Lipitor PO 80 mg HS DAYAN Administration Insulin Aspart 0 unit 12/12/19 17:30 12/14/19 12:04 Novolog SQ 3 unit ACHS DAYAN Administration Protocol Insulin Detemir 9 unit 12/12/19 21:00 12/13/19 20:33 Levemir SQ 9 unit HS DAYAN Administration Lisinopril 20 mg 12/14/19 21:00 Zestril PO BID DAYAN Ondansetron HCl 4 mg 12/12/19 17:18 12/13/19 03:19 Zofran IVP 4 mg Q6HR PRN Administration Nausea And Vomiting Pantoprazole Sodium 40 mg 12/13/19 07:30 12/14/19 08:11 Protonix PO 40 mg [id number] [facility] Administration Intake and Output 12/13/19 12/14/19 12/14/19 22:59 06:59 14:59 Intake Total 550 540 120 Output Total 800 900 0 Balance -250 -360 120 Intake: IV 300 0 0 Sodium Chloride 0.9% 1, 300 0 0 000 ml @ 75 mls/hr IV . [id number] [facility] Rx#:[id number] Oral 250 540 120 Output: Urine 800 900 0 Other: # Voids 0 0 450 Weight 52.1 kg 12/14/19 04:32 12/14/19 04:29
--- NOTE | 2019-12-14 13:08 | P.CRDCN ---
History of Present Illness History of present illness: This is Jeannette West PA-C dictating a consult on this patient The patient was interviewed and examined by me as well as by Dr. Canaels Case discussed with Dr. Canales and he agrees with the plan of care IMPRESSION / ASSESSMENT: 69-year-old female who presented with dysarthria, possibly secondary to stroke, hypertensive upon arrival, she was given TPA, symptoms slowly resolved, no clear-cut infarct noted on MRI Recent echo showing moderate pericardial effusion, etiology unknown, no pleural effusion on chest x-ray, patient is asymptomatic Hypertension, blood pressure remains elevated Diabetes Dyslipidemia PLAN: Increase lisinopril to 20 mg twice a day She has already been switched to Lipitor 80 mg daily Recommend implantation of a loop monitor to look for silent atrial fibrillation as a possible cause of her stroke, detailed discussion with the patient about the procedure and indications she agrees to proceed, will schedule it within the next few days either as an inpatient or as an outpatient Monitor telemetry for arrhythmias Discussion with patient about minimizing NSAID use as her daily Naprosyn is likely contributing to her uncontrolled hypertension HPI Patient is a 69-year-old female with a past medical history significant for diabetes, hypertension, dyslipidemia who presented with strokelike symptoms. 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 She states that she woke up with a headache in the middle the night. She has had headaches before but this one was more severe. She went back to bed and then woke up a few hours later to get lab work done. At that time she noticed she" felt off" and had difficulty with conversation. She felt like she couldn't get the words out. She was having difficulty texting. This progressed and she couldn't remember her 's name. She did not check her blood pressure at that time. She denied any nu mbness or weakness. No chest pain or shortness of breath. No preceding palpitations or dizziness. She also denies any recent viral illnesses, nausea or vomiting or diarrhea. She came into the emergency department for further evaluation. Upon presentation to the emergency department her blood pressure was 218/100 and her pulses 140. Brain CT showed no intracranial hemorrhage. CT angiogram of the head and neck showed no significant stenosis in the common or internal carotid arteries. She was given TPA and her symptoms have gradually improved. Her echocardiogram shows EF 50-55%, intra-atrial and interventricular ventricular septum intact, and a moderate pericardial effusion with normal IVC inspiratory collapse consistent with normal RA pressure. Patient seen and examined in bed. States her symptoms have completely resolved. No headache. No chest pain, palpitations, shortness of breath. ROS: No fevers, chills or rigors, no cough, phlegm or expectoration, no nausea, vomiting or diarrhea, no hematuria, dysuria, Positive for back pain Positive for stroke, no seizures, no skin lesions. EXAMINATION: Patient is afebrile, pulse in the 90s, respirations 13, blood pressure 178/91, oxygen saturation 99% on room air Patient seen and examined resting in bed, in no acute distress Lungs clear to auscultation bilaterally, no wheezing rhonchi or crackles Heart is regular, normal S1-S2, no audible murmurs, no friction rubs No elevated JVD No lower extremity edema REVIEW OF LABS, ECG & MEDICAL DATA EKG showed sinus mechanism, 0.[address] depressions in the lateral precordial leads CBC 6.0, hemoglobin 10.1, platelets 470, potassium 4.2, BUN 15, creatinine 0.48 LDL is 38 TSH 1.6 Troponin negative Past Medical History Past Medical History: Diabetes Mellitus, Hyperlipidemia, Hypertension Additional Past Medical History / Comment(s): NIDDM type II History of Any Multi-Drug Resistant Organisms: None Reported Past Surgical History: Hysterectomy Additional Past Surgical History / Comment(s): laminectomy, bunionectomy, Past Anesthesia/Blood Transfusion Reactions: No Reported Reaction Past Psychological History: No Psychological Hx Reported Smoking Status: Never smoker Past Alcohol Use History: None Reported Past Drug Use History: None Reported - Past Family History Father Family Medical History: Diabetes Mellitus Mother Family Medical History: Hypertension, Rheumatoid Arthritis (RA) Medications and Allergies Home Medications Medication Instructions Recorded Confirmed Type Biotin 5 mg PO DAILY 04/05/19 12/12/19 History Esomeprazole Magnesium [NexIUM] 40 mg PO DAILY 04/05/19 12/12/19 History Insulin Degludec [Tresiba] 6 units SQ HS 04/05/19 12/12/19 History Lisinopril 20 mg PO DAILY 04/05/19 12/12/19 History Naproxen Sodium [Aleve] 220 mg PO BID 04/05/19 12/12/19 History Pravastatin Sodium [Pravachol] 20 mg PO HS 04/05/19 12/12/19 History Ubidecarenone [Co Q-10] 100 mg PO DAILY 04/05/19 12/12/19 History Vit C/E/Zn/Coppr/Lutein/Zeaxan 1 cap PO BID 04/05/19 12/12/19 History [Preservision Areds 2 Softgel] metFORMIN HCL 1,000 mg PO BID 04/05/19 12/12/19 History Eszopiclone [Lunesta] 2 mg PO HS 12/12/19 12/12/19 History Furosemide [Lasix] 20 mg PO DAILY 12/12/19 12/12/19 History Insulin Aspart [NovoLOG Flexpen] See Protocol SQ AC-TID 12/12/19 12/12/19 History Oxybutynin Chloride [Ditropan] 5 mg PO TID PRN 12/12/19 12/12/19 History Potassium Chloride 10 meq PO DAILY 12/12/19 12/12/19 History Allergies Allergy/AdvReac Type Severity Reaction Status Date / Time codeine AdvReac Nausea & Verified 12/12/19 15:52 Vomiting nickel AdvReac Rash/Hives Verified 12/12/19 15:52 thimerosal AdvReac Rash/Hives Verified 12/12/19 15:52 Physical Exam Vitals: Vital Signs Temp Pulse Resp BP Pulse Ox 12/14/19 12:00 98.1 F 89 13 178/91 99 12/14/19 11:00 96 20 165/84 12/14/19 10:00 97 24 144/61 12/14/19 09:00 87 18 155/61 12/14/19 08:00 97.9 F 80 24 151/68 96 12/14/19 07:00 95 20 117/64 12/14/19 06:00 74 14 156/83 12/14/19 05:00 76 11 L 146/79 12/14/19 04:00 97.8 F 75 12 112/55 98 12/14/19 03:00 70 14 144/67 93 L 12/14/19 02:00 73 13 160/78 12/14/19 01:00 69 10 L 151/76 12/14/19 00:00 97.8 F 61 12 147/70 93 L 12/13/19 23:25 64 13 162/72 12/13/19 23:00 74 18 170/72 95 12/13/19 22:00 82 17 166/85 12/13/19 21:00 87 14 174/84 97 12/13/19 20:00 71 11 L 189/84 97 12/13/19 19:00 85 21 167/80 12/13/19 18:00 83 19 150/96 12/13/19 17:00 88 19 166/92 96 12/13/19 16:00 98 F 70 17 168/83 97 12/13/19 15:00 73 19 158/72 12/13/19 14:00 86 14 172/76 Intake and Output 12/13/19 12/14/19 12/14/19 22:59 06:59 14:59 Intake Total 550 540 120 Output Total 800 900 0 Balance -250 -360 120 Intake: IV 300 0 0 Sodium Chloride 0.9% 1, 300 0 0 000 ml @ 75 mls/hr IV . [id number] [facility] Rx#:[id number] Oral 250 540 120 Output: Urine 800 900 0 Other: # Voids 0 0 450 Weight 52.1 kg Results 12/14/19 04:32 12/14/19 04:29 CBC 12/14/19 Range/Units 04:32 WBC 6.0 (3.8-10.6) k/uL RBC 4.12 (3.80-5.40) m/uL Hgb 10.1 L (11.4-16.0) gm/dL Hct 33.7 L (34.0-46.0) % Plt Count 470 H (150-450) k/uL Comprehensive Metabolic Panel 12/14/19 Range/Units 04:29 Sodium 138 (137-145) mmol/L Potassium 4.2 (3.5-5.1) mmol/L Chloride 106 (98-107) mmol/L Carbon Dioxide 26 (22-30) mmol/L BUN 15 (7-17) mg/dL Creatinine 0.48 L (0.52-1.04) mg/dL Glucose 69 L (74-99) mg/dL Calcium 9.3 (8.4-10.2) mg/dL Current Medications Generic Name Dose Route Start Last Admin Trade Name Freq PRN Reason Stop Dose Admin Acetaminophen/Butalbital/Caffeine 1 each 12/13/19 16:56 12/13/19 17:07 Fioricet 50-325-40 PO 1 each Q4HR PRN Administration Headache Hydrocodone Bitart/Acetaminophen 1 each 12/12/19 17:19 12/13/19 10:11 [place] 7.5-325 PO 1 each Q4H PRN Administration Pain Aspirin 81 mg 12/13/19 17:00 12/14/19 08:11 Aspirin PO 81 mg DAILY [facility] Administration Atorvastatin Calcium 80 mg 12/12/19 21:00 12/13/19 20:33 Lipitor PO 80 mg HS [facility] Administration Insulin Aspart 0 unit 12/12/19 17:30 12/14/19 12:04 Novolog SQ 3 unit ACHS [facility] Administration Protocol Insulin Detemir 9 unit 12/12/19 21:00 12/13/19 20:33 Levemir SQ 9 unit HS [facility] Administration Lisinopril 20 mg 12/14/19 21:00 Zestril PO BID [facility] Ondansetron HCl 4 mg 12/12/19 17:18 12/13/19 03:19 Zofran IVP 4 mg Q6HR PRN Administration Nausea And Vomiting Pantoprazole Sodium 40 mg 12/13/19 07:30 12/14/19 08:11 Protonix PO 40 mg [id number] [facility] Administration Intake and Output 12/13/19 12/14/19 12/14/19 22:59 06:59 14:59 Intake Total 550 540 120 Output Total 800 900 0 Balance -250 -360 120 Intake: IV 300 0 0 Sodium Chloride 0.9% 1, 300 0 0 000 ml @ 75 mls/hr IV . [id number] [facility] Rx#:[id number] Oral 250 540 120 Output: Urine 800 900 0 Other: # Voids 0 0 450 Weight 52.1 kg 12/14/19 04:32 12/14/19 04:29
--- NOTE | 2019-12-14 15:02 | P.PN ---
Subjective Progress Note Date: 12/14/19 Patient doing much better. Neurological symptoms have all resolved. Headache also resolved after taking one tablet of Fioricet. She has no headache now. Her blood pressure seems to be trending up again. No new neurological symptoms. Denies numbness tingling weakness diplopia. Patient states that she remembers all details during hospitalization including ER visit. No loss of memory. No evidence of encephalitis. No evidence of seizures. Objective - Vital Signs Vital signs: Vital Signs Temp 98.1 F 12/14/19 12:00 Pulse 82 12/14/19 14:00 Resp 13 12/14/19 14:00 BP 159/98 12/14/19 14:00 Pulse Ox 99 12/14/19 12:00 Intake & Output 12/13/19 12/14/19 12/14/19 18:59 06:59 18:59 Intake Total 1150 790 120 Output Total 2300 900 0 Balance -1150 -110 120 Weight 52.1 kg Intake: IV 900 0 0 Sodium Chloride 0.9% 1, 900 0 0 000 ml @ 75 mls/hr IV . [id number] [facility] Rx#:[id number] Oral 250 790 120 Output: Urine 2300 900 0 Other: # Voids 3 0 450 - Exam On examination patient's mental status, speech and language functions are normal. Patient able to name, repeat, read, write without difficulty. No paraphasic errors, or word finding problem. On cranial nerve examination pupils are round and reactive to light. Visual lam are full on confrontation with no neglect. Extraocular muscles intact. No nystagmus. Face is symmetric and tongue protrudes the midline. Palatal elevation sensation normal. On muscle strength testing there is no pronator drift and the strength is normal in arms and legs distally and proximally. Reflexes are 1+ and plantars downgoing. Sensory touch is equal with no neglect on double simultaneous stimulation. No ataxia for [id number] testing. Tone and bulk of muscles normal. Gait deferred. - Labs CBC & Chem 7: 12/14/19 04:32 12/14/19 04:29 Labs: Abnormal Lab Results - Last 24 Hours (Table) 12/13/19 12/13/19 12/14/19 Range/Units 16:54 20:13 04:29 Hgb (11.4-16.0) gm/dL Hct (34.0-46.0) % MCH (25.0-35.0) pg MCHC (31.0-37.0) g/dL RDW (11.5-15.5) % Plt Count (150-450) k/uL Creatinine 0.48 L (0.52-1.04) mg/dL Glucose 69 L (74-99) mg/dL POC Glucose (mg/dL) 153 H 263 H (75-99) mg/dL 12/14/19 12/14/19 12/14/19 Range/Units 04:32 05:49 11:40 Hgb 10.1 L (11.4-16.0) gm/dL Hct 33.7 L (34.0-46.0) % MCH 24.4 L (25.0-35.0) pg MCHC 29.9 L (31.0-37.0) g/dL RDW 15.9 H (11.5-15.5) % Plt Count 470 H (150-450) k/uL Creatinine (0.52-1.04) mg/dL Glucose (74-99) mg/dL POC Glucose (mg/dL) 101 H 237 H (75-99) mg/dL Assessment and Plan Assessment: * Possible CVA, versus hypertensive encephalopathy, manifesting with expressive aphasia, and complete right homonymous hemianopia. Patient is status post intravenous TPA. MRI of the brain negative for any acute stroke. Her current NIH stroke scale is 0. * Cephalgia, now resolved. Likely due to hypertensive encephalopathy. Patient does not have any previous history of migraines or family history of migraines. * Hypertension, uncontrolled * Diabetes, not well controlled Plan: * Patient has remarkably improved. Her NIH stroke scale is 0. Her headache has also resolved with Fioricet. * 2-D echo with bubble study showed EF 50-55%. Normal left atrial size. Contrast study was performed with 2 IV injections of 8 mL of agitated normal saline, at rest and with cough. Interatrial and interventricular septum intact. There is moderate generalized pericardial effusion. Cardiology has seen the patient, and are recommending loop recorder to rule out paroxysmal A. fib. * MRI of the brain completely normal with no acute ischemic stroke. Nonspecific white matter ischemic change. * Fasting a.m. lipid panel showed cholesterol 118, LDL 38, HDL 67, triglycerides 67. Continue Lipitor. * Hemoglobin A1c 7.7, better controlled than previously. * Patient has been started on aspirin 81 mg daily for stroke prevention. Would avoid higher dose because of pericardial effusion. * Optimize control of blood pressure. * Discussed with patient's family in detail.
[2019-12-14 17:09] LABS: Glucose,Whole Blood 182 mg/dL (75-99)
[2019-12-14] MEDS ORDERED: DILTIAZEM DRIP BOLUS FROM BAG 1 MG SOLN IV ONE (18:53)
[2019-12-14] MEDS ORDERED: DILTIAZEM 125 MG in SODIUM CHLORIDE 0.9% 100 ML IV SCH (19:30)
[2019-12-14] MEDS ORDERED: LABETALOL 5 MG/ML VIAL MDV IVP PRN (19:39)
[2019-12-14] MEDS: SODIUM CHLORIDE 0.9% 1,000 ML IV SCH (19:50)
[2019-12-14] MEDS ORDERED: LISINOPRIL 5 MG TAB PO SCH (21:00)
[2019-12-14 21:27] LABS: Glucose,Whole Blood 249 mg/dL (75-99)
[2019-12-14] MEDS: INSULIN DETEMIR (LEVEMIR) 100 UNIT/ML SYR SQ SCH (21:27)
[2019-12-14] MEDS: ATORVASTATIN 80 MG TAB PO SCH (21:27)
[2019-12-14] MEDS: LISINOPRIL 20 MG TAB PO SCH (21:27)
--- NOTE | 2019-12-14 23:04 | P.PN ---
Subjective Progress Note Date: 12/13/19 Principal diagnosis: Acute CVA Patient is a 69-year-old female with a known history of hypertension, diabetes type 2 insulin-dependent, recent history of bladder surgery on 11/25/2018 was brought to the hospital by her due to complaints of headache and confusion and unable to find words which started around 10 AM this morning. Around 4 AM patient woke up from bed to go to the bathroom and felt headaches which got worse and later patient became confused. She slept for a while and after she woke up around 10 AM she was unable to talk and patient was brought to the hospital. Patient was also having vision problems mainly in the right eye and unable to focus. Denied any focal weakness. No facial droop noted. When she come to the hospital around 4 PM her NIH score was 9. Patient was seen by stroke team and recommended TPA which was given in the ER. Patient did improve symptomatically after TPA. Patient's blood pressure was uncontrolled with SBP greater than 218 mmHg and was also sinus tachycardic. Patient was started on nicardipine drip and also stacey ent was given pain medications which seem to improve her blood pressure as well. CT head showed no acute intracranial process. Mild to moderate diffuse cerebral atrophy and minimal chronic small vessel ischemic changes. CT head and neck was done showed no significant stenosis. Next and EKG showed sinus tachycardia Chest x-ray showed suspect cardiomegaly Lactic acid 4.1 on admission, calcium 10.3 UA negative for infection Platelets 596 k, WBC 11.1 hemoglobin 12.3 Patient was also hyperglycemic on admission with blood sugar in 200s, acetone negative 12/13/2019 Patient denied any complaints of weakness. No no visual disturbance. No neurological symptoms. Headache is much improved. Otherwise blood pressure is elevated. 2-D echocardiogram showed normal ejection fraction and moderate per icardial effusion. Cardiology was consulted. Neurology is following. Patient is scheduled for MRI today. cholesterol 118, LDL 38, HDL 67, triglycerides 67. Continue Lipitor. Hemoglobin A1c 7.7 No complaints of chest pain or shortness of. No nausea vomiting or abdominal pain. Current medications reviewed. Objective - Vital Signs Vital signs: Vital Signs Temp 98 F 12/13/19 12:00 Pulse 73 12/13/19 15:00 Resp 19 12/13/19 15:00 BP 158/72 12/13/19 15:00 Pulse Ox 96 12/13/19 12:00 Intake & Output 12/12/19 12/13/19 12/13/19 18:59 06:59 18:59 Intake Total 523.750 825 925 Output Total 350 1100 1500 Balance 173.750 -275 -575 Weight 54.8 kg 53.5 kg Intake: IV 300 825 675 Sodium Chloride 0.9% 1, 300 825 675 000 ml @ 75 mls/hr IV . [id number] [facility] Rx#:[id number] Intake, IV Titration 163.750 Amount niCARdipine 20 mg In 163.750 Sodium Chloride 0.9% 192 ml @ 10 MG/HR 100 mls/hr IV .Q2H [facility] Rx#:[id number] Oral 250 Tube Feeding 60 Output: Urine 350 1100 1500 Other: # Voids 0 3 - Exam PHYSICAL EXAMINATION: Patient is lying in the bed comfortably, no acute distress, awake alert and oriented.. HEENT: Normocephalic. Neck is supple. Pupils reactive. Nostrils clear. Oral cavity is moist. Ears reveal no drainage. Neck reveals no JVD, carotid bruits, or thyromegaly. CHEST EXAMINATION: Trachea is central. Symmetrical expansion. Lung lam clear to auscultation and percussion. CARDIAC: Normal S1, S2 with no gallops. No murmurs . Sinus tachycardia ABDOMEN: Soft. Bowel sounds normal. No organomegaly. No abdominal bruits. Extremities: reveal no edema. No clubbing or cyanosis Neurologically awake, alert, oriented x3 with well-coordinated movements. No focal deficits noted Skin: No rash or skin lesions. Psychiatric: Coperative. Nonsuicidal Musculoskeletal: No joint swelling or deformity. Normal range of motion. - Labs CBC & Chem 7: 12/14/19 04:32 12/14/19 04:29 Labs: Abnormal Lab Results - Last 24 Hours (Table) 12/12/19 12/12/19 12/12/19 Range/Units 12:43 17:27 21:04 Hgb (11.4-16.0) gm/dL Hct (34.0-46.0) % MCH (25.0-35.0) pg MCHC (31.0-37.0) g/dL RDW (11.5-15.5) % Plt Count (150-450) k/uL Carbon Dioxide (22-30) mmol/L BUN (7-17) mg/dL Glucose (74-99) mg/dL POC Glucose (mg/dL) 254 H 160 H (75-99) mg/dL Hemoglobin A1c 7.7 H (4.0-6.0) % Total Protein (6.3-8.2) g/dL HDL Cholesterol (40-60) mg/dL 12/13/19 12/13/19 12/13/19 Range/Units 04:46 04:49 05:27 Hgb 9.3 L D (11.4-16.0) gm/dL Hct 31.6 L (34.0-46.0) % MCH 24.1 L (25.0-35.0) pg MCHC 29.5 L (31.0-37.0) g/dL RDW 16.0 H (11.5-15.5) % Plt Count 477 H (150-450) k/uL Carbon Dioxide 31 H (22-30) mmol/L BUN 22 H (7-17) mg/dL Glucose 53 L (74-99) mg/dL POC Glucose (mg/dL) 72 L (75-99) mg/dL Hemoglobin A1c (4.0-6.0) % Total Protein 5.9 L (6.3-8.2) g/dL HDL Cholesterol 67 H (40-60) mg/dL 12/13/19 Range/Units 11:55 Hgb (11.4-16.0) gm/dL Hct (34.0-46.0) % MCH (25.0-35.0) pg MCHC (31.0-37.0) g/dL RDW (11.5-15.5) % Plt Count (150-450) k/uL Carbon Dioxide (22-30) mmol/L BUN (7-17) mg/dL Glucose (74-99) mg/dL POC Glucose (mg/dL) 139 H (75-99) mg/dL Hemoglobin A1c (4.0-6.0) % Total Protein (6.3-8.2) g/dL HDL Cholesterol (40-60) mg/dL Assessment and Plan Assessment: Expressive aphasia and right-sided visual problems likely due to acute CVA. Status post TPA. Hypertension urgency on admission Severe lactic acidosis 4.1. Improved now Dehydration and volume depletion Mild hypercalcemia secondary to dehydration Hyperglycemia with uncontrolled diabetes type 2 insulin-dependent Recent history of bladder surgery on 11/25/2018 DVT prophylaxis Plan: Patient is status post TPA and did improve symptomatically. Patient did have improvement in speech and visual problems. Denied any focal weakness. Patient was started on Levemir and insulin sliding scale. Continue with telemetry monitoring. Continue with neuro checks every hour and monitor the patient MICU. Neurology has seen the patient and complete stroke workup including 2-D echocardiogram with bubble study, MRI of the brain and lipid panel and his B A1c was ordered. Speech and swallow ventilation. GI and DVT prophylaxis. Further recommendations based on the clinical course. Discussed with the family at bedside in detail. Time with Patient: Greater than 30
--- NOTE | 2019-12-14 23:11 | P.PN ---
Subjective Progress Note Date: 12/14/19 Principal diagnosis: Acute CVA Patient is a 69-year-old female with a known history of hypertension, diabetes type 2 insulin-dependent, recent history of bladder surgery on 11/25/2018 was brought to the hospital by her due to complaints of headache and confusion and unable to find words which started around 10 AM this morning. Around 4 AM patient woke up from bed to go to the bathroom and felt headaches which got worse and later patient became confused. She slept for a while and after she woke up around 10 AM she was unable to talk and patient was brought to the hospital. Patient was also having vision problems mainly in the right eye and unable to focus. Denied any focal weakness. No facial droop noted. When she come to the hospital around 4 PM her NIH score was 9. Patient was seen by stroke team and recommended TPA which was given in the ER. Patient did improve symptomatically after TPA. Patient's blood pressure was uncontrolled with SBP greater than 218 mmHg and was also sinus tachycardic. Patient was started on nicardipine drip and also stacey ent was given pain medications which seem to improve her blood pressure as well. CT head showed no acute intracranial process. Mild to moderate diffuse cerebral atrophy and minimal chronic small vessel ischemic changes. CT head and neck was done showed no significant stenosis. Next and EKG showed sinus tachycardia Chest x-ray showed suspect cardiomegaly Lactic acid 4.1 on admission, calcium 10.3 UA negative for infection Platelets 596 k, WBC 11.1 hemoglobin 12.3 Patient was also hyperglycemic on admission with blood sugar in 200s, acetone negative 12/13/2019 Patient denied any complaints of weakness. No no visual disturbance. No neurological symptoms. Headache is much improved. Otherwise blood pressure is elevated. 2-D echocardiogram showed normal ejection fraction and moderate per icardial effusion. Cardiology was consulted. Neurology is following. Patient is scheduled for MRI today. cholesterol 118, LDL 38, HDL 67, triglycerides 67. Continue Lipitor. Hemoglobin A1c 7.7 No complaints of chest pain or shortness of. No nausea vomiting or abdominal pain. 12/14/2019 Patient denied any complaints of chest pain or shortness of breath. Awake alert oriented 3. Denied any visual disturbance focal weakness. Headache is much improved. Otherwise blood pressure is still elevated. Lisinopril dose increased to 20 mg twice a day. Iron panel was ordered due to microcytic an emia. MRI of the brain showed no evidence of acute ischemic change, degenerative and nonspecific white matter changes most typical of remote ischemia. Cardiology and neurology is following. Patient is being continued on Levemir and insulin sliding scale. No headache or dizziness or lightheadedness. No fever no chills. Current medications reviewed. Objective - Vital Signs Vital signs: Vital Signs Temp 98.1 F 12/14/19 12:00 Pulse 89 12/14/19 12:00 Resp 13 12/14/19 12:00 BP 178/91 12/14/19 12:00 Pulse Ox 99 12/14/19 12:00 Intake & Output 12/13/19 12/14/19 12/14/19 18:59 06:59 18:59 Intake Total 1150 790 120 Output Total 2300 900 0 Balance -1150 -110 120 Weight 52.1 kg Intake: IV 900 0 0 Sodium Chloride 0.9% 1, 900 0 0 000 ml @ 75 mls/hr IV . [id number] [facility] Rx#:[id number] Oral 250 790 120 Output: Urine 2300 900 0 Other: # Voids 3 0 450 - Exam PHYSICAL EXAMINATION: Patient is lying in the bed comfortably, no acute distress, awake alert and oriented.. HEENT: Normocephalic. Neck is supple. Pupils reactive. Nostrils clear. Oral cavity is moist. Ears reveal no drainage. Neck reveals no JVD, carotid bruits, or thyromegaly. CHEST EXAMINATION: Trachea is central. Symmetrical expansion. Lung lam clear to auscultation and percussion. CARDIAC: Normal S1, S2 with no gallops. No murmurs . Sinus tachycardia ABDOMEN: Soft. Bowel sounds normal. No organomegaly. No abdominal bruits. Extremities: reveal no edema. No clubbing or cyanosis Neurologically awake, alert, oriented x3 with well-coordinated movements. No focal deficits noted Skin: No rash or skin lesions. Psychiatric: Coperative. Nonsuicidal Musculoskeletal: No joint swelling or deformity. Normal range of motion. - Labs CBC & Chem 7: 12/14/19 04:32 12/14/19 04:29 Labs: Abnormal Lab Results - Last 24 Hours (Table) 12/13/19 12/13/19 12/14/19 Range/Units 16:54 20:13 04:29 Hgb (11.4-16.0) gm/dL Hct (34.0-46.0) % MCH (25.0-35.0) pg MCHC (31.0-37.0) g/dL RDW (11.5-15.5) % Plt Count (150-450) k/uL Creatinine 0.48 L (0.52-1.04) mg/dL Glucose 69 L (74-99) mg/dL POC Glucose (mg/dL) 153 H 263 H (75-99) mg/dL 12/14/19 12/14/19 12/14/19 Range/Units 04:32 05:49 11:40 Hgb 10.1 L (11.4-16.0) gm/dL Hct 33.7 L (34.0-46.0) % MCH 24.4 L (25.0-35.0) pg MCHC 29.9 L (31.0-37.0) g/dL RDW 15.9 H (11.5-15.5) % Plt Count 470 H (150-450) k/uL Creatinine (0.52-1.04) mg/dL Glucose (74-99) mg/dL POC Glucose (mg/dL) 101 H 237 H (75-99) mg/dL Assessment and Plan Assessment: Expressive aphasia and right-sided visual problems likely due to acute CVA. Status post TPA. Hypertension urgency on admission Severe lactic acidosis 4.1. Improved now Dehydration and volume depletion Mild hypercalcemia secondary to dehydration Hyperglycemia with uncontrolled diabetes type 2 insulin-dependent Recent history of bladder surgery on 11/25/2018 DVT prophylaxis Plan: Patient is status post TPA and did improve symptomatically. Patient did have improvement in speech and visual problems. Denied any focal weakness. Patient was started on Levemir and insulin sliding scale. Continue with telemetry monitoring. Continue with neuro checks every hour and monitor the patient MICU. Neurology has seen the patient and complete stroke workup including 2-D echocardiogram with bubble study, MRI of the brain and lipid panel and his B A1c was done. Patient is tolerating oral diet.. GI and DVT prophylaxis. Further recommendations based on the clinical course. Discussed with the family at bedside in detail. Time with Patient: Greater than 30
[2019-12-15 06:20] LABS: Basophils # (A) 0.1 k/uL (0-0.2); Basophils % (A) 1 %; Eosinophils # (A) 0.6 k/uL (0-0.7); Eosinophils % (A) 11 %; HCT 35.2 % (34.0-46.0); HGB 10.6 gm/dL (11.4-16.0); Hypochromasia Moderate; Lymphocytes # (A) 1.4 k/uL (1.0-4.8); Lymphocytes % (A) 26 %; MCH 24.5 pg (25.0-35.0); MCV 81.5 fL (80.0-100.0); Mean Platelet Volume 6.7; Monocytes # (A) 0.5 k/uL (0-1.0); Monocytes % (A) 9 %; Neutrophils # (A) 2.7 k/uL (1.3-7.7); Neutrophils % (A) 50 %; Platelet Count 501 k/uL (150-450); RBC 4.33 m/uL (3.80-5.40); RDW 15.7 % (11.5-15.5); WBC 5.4 k/uL (3.8-10.6)
[2019-12-15 06:20] LABS: Glucose,Whole Blood 118 mg/dL (75-99)
[2019-12-15 06:35] LABS: African American GFR (CKD) >90 (>60 ml/min/1.73 sqM); Anion Gap 6 mmol/L; Blood Urea Nitrogen 17 mg/dL (7-17); Calcium 9.2 mg/dL (8.4-10.2); Carbon Dioxide 29 mmol/L (22-30); Chloride 106 mmol/L (98-107); Glucose 84 mg/dL (74-99); Non-African American GFR(CKD) >90 (>60 ml/min/1.73 sqM); Potassium 4.4 mmol/L (3.5-5.1); Sodium 141 mmol/L (137-145)
[2019-12-15] MEDS: INSULIN ASPART (NovoLOG) 100 UNIT/ML VIAL SQ SCH ×7 (06:51→20:27)
[2019-12-15] MEDS: PANTOPRAZOLE 40 MG TABLET PO SCH (07:14)
--- NOTE | 2019-12-15 08:47 | XR ---
EXAMINATION TYPE: XR chest 1V portable DATE OF EXAM: 12/15/2019 COMPARISON: 12/12/2019 HISTORY: Abnormal x-ray TECHNIQUE: Single frontal view of the chest is obtained. FINDINGS: Heart is enlarged. No pleural effusion or overt failure. No interstitial edema or pneumoth orax. Curvature the spine may be positional. IMPRESSION: Severe cardiomegaly correlate for cardiomyopathy versus pericardial effusion.
[2019-12-15] MEDS: ASPIRIN 81 MG PO SCH (09:13)
[2019-12-15] MEDS: LISINOPRIL 20 MG TAB PO SCH ×2 (09:13→20:23)
[2019-12-15] MEDS: SODIUM CHLORIDE 0.9% 1,000 ML IV SCH (09:20)
--- NOTE | 2019-12-15 09:29 | PN ---
PROGRESS NOTE PULMONARY/CRITICAL CARE PROGRESS NOTE: DATE OF SERVICE: December 15, 2019 This is a 69-year-old female who was admitted back on the 12 of December. She came in with stroke-like symptoms, specifically and unable to get words out of her mouth. She had both aphasia and dysphasia. Anyway, the patient had a CT scan of the brain which was negative save for some chronic changes. Angiography CT was negative and MRI was negative. The patient did receive tPA when she first came into the emergency room. In addition, she has a history of hypertension, hyperlipidemia, acid reflux disease, and a moderately sized pericardial effusion. She is being seen by Cardiology for that. She was ready to be discharged out of the unit yesterday, became tachycardic. For that reason, she stayed through the night. Currently, she is on room air. Her IV is 0.9 at 75 mL an hour. The episode of sinus tachycardia occurred right around 7:00 or change of shift. PHYSICAL EXAMINATION: VITAL SIGNS: Her current vital signs are reviewed. Temperature is 98, heart rate 82, respiratory rate 16, blood pressure 142/85, mean 104, room air saturation 98%. GENERAL: Appears in no acute distress. HEENT: Examination is grossly unremarkable. No supplemental oxygen. NECK: Supple. Full range of motion. No adenopathy or thyromegaly. Neck veins flat. CARDIOVASCULAR: Examination reveals regular rhythm and rate. Heart rate mid 80s. S1, S2 normal. No S3, S4, or murmur. LUNGS: Reveal mostly clear breath sounds. No wheezes, rhonchi, or crackles. Breath sounds equal bilaterally. ABDOMEN: Soft. Bowel sounds are heard. EXTREMITIES: Are intact. No cyanosis, clubbing, or edema. SKIN: Without rash. NEUROLOGIC: Examination is nonfocal. LABS: Labs are reviewed. White count 5.4, hemoglobin 10.6, hematocrit 35.2, platelet count 501,000. Sodium 141, potassium 4.4, chloride 106, CO2 is 29. Anion gap is 6. BUN and creatinine were 17 and 0.49. Chest x-ray from the shows clear lung lam. She does have cardiomegaly. Costophrenic angles are clear. Labs are reviewed. Microbiology is negative. MEDICATIONS: Medications are reviewed. Currently, she is on aspirin, Lipitor, Fioricet, [place], insulin, labetalol, lisinopril, Zofran, Protonix, and saline IV. ASSESSMENT: 1. Suspected acute ischemic cerebrovascular accident, manifesting primarily as aphasia/dysphasia, status post tPA with significant improvement. 2. Moderate-size pericardial effusion, currently being evaluated by Cardiology. 3. Hypertension. 4. Hyperlipidemia. 5. History of gastroesophageal reflux disease. 6. Brief episode of sinus tachycardia yesterday at 7 p.m./change of shift, of unclear etiology. PLAN: The patient is doing well. She has been given some fluid back, possibly thinking that the tachycardia was related to dehydration. The patient's neurologic symptoms have completely dissipated. Her brain CT was essentially negative. In addition, her angiography CT was negative and her MRI was negative. Additional recommendations and suggestions forthcoming. Prognosis is guarded. The patient could be transferred out of the ICU. CARLY / RUT: [id number] /
--- NOTE | 2019-12-15 12:04 | P.PN ---
Subjective Progress Note Date: 12/15/19 Patient doing much better. Neurological symptoms have all resolved. Patient denies headache at this time, or since she tried Fioricet. Her blood pressure seems to be trending up again. It does go high although currently is 144/75. No new neurological symptoms. Denies numbness tingling weakness diplopia. Patient later stated that while EEG was being done, when she was closing eyes, she was seeing some colors in her vision, only with closed eyes. It would go away when she would open her eyes. Denies any focal numbness tingling weakness slurred speech facial droop. Patient states that she remembers all details during hospitalization including ER visit. No loss of memory. No evidence of encephalitis. No evidence of seizures. Objective - Vital Signs Vital signs: Vital Signs Temp 98.0 F 12/15/19 04:00 Pulse 79 12/15/19 11:30 Resp 11 L 12/15/19 11:30 BP 146/86 12/15/19 11:30 Pulse Ox 98 12/15/19 09:00 Intake & Output 12/14/19 12/15/19 12/15/19 18:59 06:59 18:59 Intake Total 360 1240 550 Output Total 0 1350 Balance 360 -110 550 Weight 52.8 kg Intake: IV 0 Sodium Chloride 0.9% 1, 0 000 ml @ 75 mls/hr IV . [id number] [facility] Rx#:[id number] Intake, IV Titration 900 300 Amount Sodium Chloride 0.9% 1, 900 300 000 ml @ 75 mls/hr IV . [id number] [facility] Rx#:[id number] Oral 360 340 250 Output: Urine 0 1350 Other: # Voids 500 250 1 - Exam On examination patient's mental status, speech and language functions are normal. Patient able to name, repeat, read, write without difficulty. No paraphasic errors, or word finding problem. On cranial nerve examination pupils are round and reactive to light. Visual lam are full on confrontation with no neglect. Extraocular muscles intact. No nystagmus. Face is symmetric and tongue protrudes the midline. Palatal elevation sensation normal. On muscle strength testing there is no pronator drift and the strength is normal in arms and legs distally and proximally. Reflexes are 1+ and plantars downgoing. Sensory touch is equal with no neglect on double simultaneous stimulation. No ataxia for [id number] testing. Tone and bulk of muscles normal. Gait deferred. - Labs CBC & Chem 7: 12/15/19 05:24 12/15/19 05:24 Labs: Abnormal Lab Results - Last 24 Hours (Table) 12/14/19 12/14/19 12/15/19 Range/Units 17:08 21:26 05:24 Hgb (11.4-16.0) gm/dL MCH (25.0-35.0) pg MCHC (31.0-37.0) g/dL RDW (11.5-15.5) % Plt Count (150-450) k/uL Creatinine 0.49 L (0.52-1.04) mg/dL POC Glucose (mg/dL) 182 H 249 H (75-99) mg/dL 12/15/19 12/15/19 Range/Units 05:24 06:18 Hgb 10.6 L (11.4-16.0) gm/dL MCH 24.5 L (25.0-35.0) pg MCHC 30.0 L (31.0-37.0) g/dL RDW 15.7 H (11.5-15.5) % Plt Count 501 H (150-450) k/uL Creatinine (0.52-1.04) mg/dL POC Glucose (mg/dL) 118 H (75-99) mg/dL Assessment and Plan Assessment: * Possible CVA, versus hypertensive encephalopathy, manifesting with expressive aphasia, and complete right homonymous hemianopia. Patient is status post intravenous TPA. MRI of the brain negative for any acute stroke. Her current NIH stroke scale is 0. * Cephalgia, now resolved. Likely due to hypertensive encephalopathy. Patient does not have any previous history of migraines or family history of migraines. * Hypertension, uncontrolled * Diabetes, not well controlled Plan: * Patient has remarkably improved. Her NIH stroke scale is 0. Her headache has also resolved with Fioricet. * 2-D echo with bubble study showed EF 50-55%. Normal left atrial size. Contrast study was performed with 2 IV injections of 8 mL of agitated normal saline, at rest and with cough. Interatrial and interventricular septum intact. There is moderate generalized pericardial effusion. Cardiology has seen the patient, and are recommending loop recorder to rule out paroxysmal A. fib. * MRI of the brain completely normal with no acute ischemic stroke. Nonspecific white matter ischemic change. * Fasting a.m. lipid panel showed cholesterol 118, LDL 38, HDL 67, triglycerides 67. Continue Lipitor. * Hemoglobin A1c 7.7, better controlled than previously. * Patient is complaining of some visual disturbance, only with closed eyes and she sees some colors in the vision. We will increase dose of aspirin to 325 mg daily, if okay with cardiology. We will check EEG to rule out any epileptiform activity. * Optimize control of blood pressure. * Discussed with patient's family in detail.
[2019-12-15 12:51] LABS: Glucose,Whole Blood 150 mg/dL (75-99)
--- NOTE | 2019-12-15 14:48 | EEG ---
ELECTROENCEPHALOGRAM REPORT DATE OF SERVICE: 12/15/2019. PREAMBLE: Patient is a 69-year-old female with a recent history of possible CVA versus TIA with no residual deficits. This study is performed to evaluate for any epileptiform activity. EEG FINDINGS: A portable 21 channel awake digital EEG recording was accomplished utilizing the 10:20 international system with bipolar and referential montages. The background consists of well-developed, well-regulated, moderate voltage activity in 8-10 hertz. Background is posterior dominant and reactive to eye opening and closing. Photic driving response was seen with some flash frequencies. Drowsiness was seen with appearance of bilaterally symmetric theta frequency rhythm. Some left temporal sharp transients were seen during drowsiness, which did not appear clearly epileptiform. Stage 2 sleep was seen with the presence of some sleep spindles and vertex waves. No focal or generalized epileptiform activity was seen. EKG rhythm lead revealed no obvious arrhythmia. IMPRESSION: This is essentially a normal EEG during wakefulness, drowsiness and brief stage 2 sleep. No definitive epileptiform activity was seen. If your suspicion for seizures is high, then suggest prolonged, or sleep-deprived EEG. MMODL / IJN: [id number] / [facility]
[2019-12-15 15:13] LABS: % Iron Saturation 5.13 (12.00-45.00); Ferritin 16.1 ng/mL (10.0-291.0); Iron 20 ug/dL (50-170); Total Iron Binding Capacity 390 ug/dL (228-460)
[2019-12-15 16:36] LABS: Glucose,Whole Blood 211 mg/dL (75-99)
--- NOTE | 2019-12-15 18:32 | P.CRDCN ---
History of Present Illness History of present illness: This is Jeannette West PA-C dictating a progress note on this patient Case discussed with Dr. Canales and he agrees with the plan of care IMPRESSION / ASSESSMENT: 69-year-old female who presented with dysarthria, no clear-cut infarct noted on MRI, neurology following, believes this is likely hypertensive encephalopathy Recent echo showing moderate pericardial effusion, etiology unknown, no pleural effusion on chest x-ray, patient is asymptomatic Hypertension, blood pressure remains elevated but improving Diabetes Dyslipidemia PLAN: Loop implantation tomorrow Repeat limited echocardiogram tomorrow to reassess pericardial effusion Continue lisinopril 20 mg twice daily If her blood pressure remains elevated will consider adding a second antihypertensive agent monitor for arrhythmias HPI/interval history Patient is a 69-year-old female who presented strokelike symptoms and was found to have elevated blood pressure. She was given TPA and her symptoms resolved. MRI has not shown a clear-cut stroke. Last night she had an episode of palpitations. EKG reviewed shows sinus tachycardia. Patient seen and examined sitting up in the chair. States she feels better. No chest pain or shortness of breath. No headaches. No dizziness. She has been up walking around the unit. EXAMINATION Patient is afebrile, pulse in the 80s, respirations 16, blood pressure in the 14 0s over 70s, oxygen saturation 96% on room air Patient seen and examined sitting up in the chair, in no acute distress Lungs clear to auscultation bilaterally, no wheezing rhonchi or crackles Heart is regular, normal S1-S2, no audible murmurs, no friction rubs No elevated JVD No lower extremity edema REVIEW OF LABS, ECG WBC 5.4, hemoglobin 10.6, platelets 501, potassium 4.4, BUN 17, creatinine 0.490 Past Medical History Past Medical History: Diabetes Mellitus, Hyperlipidemia, Hypertension Additional Past Medical History / Comment(s): NIDDM type II History of Any Multi-Drug Resistant Organisms: None Reported Past Surgical History: Hysterectomy Additional Past Surgical History / Comment(s): laminectomy, bunionectomy, Past Anesthesia/Blood Transfusion Reactions: No Reported Reaction Past Psychological History: No Psychological Hx Reported Smoking Status: Never smoker Past Alcohol Use History: None Reported Past Drug Use History: None Reported - Past Family History Father Family Medical History: Diabetes Mellitus Mother Family Medical History: Hypertension, Rheumatoid Arthritis (RA) Medications and Allergies Home Medications Medication Instructions Recorded Confirmed Type Biotin 5 mg PO DAILY 04/05/19 12/12/19 History Esomeprazole Magnesium [NexIUM] 40 mg PO DAILY 04/05/19 12/12/19 History Insulin Degludec [Tresiba] 6 units SQ HS 04/05/19 12/12/19 History Lisinopril 20 mg PO DAILY 04/05/19 12/12/19 History Naproxen Sodium [Aleve] 220 mg PO BID 04/05/19 12/12/19 History Pravastatin Sodium [Pravachol] 20 mg PO HS 04/05/19 12/12/19 History Ubidecarenone [Co Q-10] 100 mg PO DAILY 04/05/19 12/12/19 History Vit C/E/Zn/Coppr/Lutein/Zeaxan 1 cap PO BID 04/05/19 12/12/19 History [Preservision Areds 2 Softgel] metFORMIN HCL 1,000 mg PO BID 04/05/19 12/12/19 History Eszopiclone [Lunesta] 2 mg PO HS 12/12/19 12/12/19 History Furosemide [Lasix] 20 mg PO DAILY 12/12/19 12/12/19 History Insulin Aspart [NovoLOG Flexpen] See Protocol SQ AC-TID 12/12/19 12/12/19 History Oxybutynin Chloride [Ditropan] 5 mg PO TID PRN 12/12/19 12/12/19 History Potassium Chloride 10 meq PO DAILY 12/12/19 12/12/19 History Allergies Allergy/AdvReac Type Severity Reaction Status Date / Time codeine AdvReac Nausea & Verified 12/12/19 15:52 Vomiting nickel AdvReac Rash/Hives Verified 12/12/19 15:52 thimerosal AdvReac Rash/Hives Verified 12/12/19 15:52 Physical Exam Vitals: Vital Signs Temp Pulse Resp BP Pulse Ox 12/15/19 17:00 93 24 155/93 12/15/19 16:30 82 16 155/93 97 12/15/19 16:15 16 12/15/19 15:30 98 F 89 18 140/75 96 12/15/19 14:30 86 13 179/85 95 12/15/19 12:30 9 L 12/15/19 12:00 98.1 F 69 10 L 146/86 96 12/15/19 11:30 79 11 L 146/86 12/15/19 11:00 80 18 164/83 95 12/15/19 10:30 92 20 168/85 12/15/19 09:30 96 15 183/87 97 12/15/19 09:00 86 13 147/75 98 12/15/19 08:00 79 11 L 158/92 96 12/15/19 07:00 80 14 163/80 12/15/19 06:00 82 16 142/85 98 12/15/19 05:00 92 6 L 149/71 97 12/15/19 04:00 98.0 F 66 13 151/88 98 12/15/19 03:00 15 134/83 97 12/15/19 02:00 71 15 119/62 97 12/15/19 01:00 71 13 135/62 95 12/15/19 00:00 97.6 F 74 14 95 12/14/19 23:43 72 14 138/80 95 12/14/19 23:00 78 13 161/77 94 L 12/14/19 22:00 92 18 180/92 94 L 12/14/19 21:00 83 11 L 169/94 96 12/14/19 20:00 98.4 F 89 15 166/83 12/14/19 19:00 83 16 165/88 Intake and Output 12/15/19 12/15/19 12/15/19 06:59 14:59 22:59 Intake Total 775 895 225 Output Total 1150 150 Balance -375 745 225 Intake: Intake, IV Titration 675 525 225 Amount Sodium Chloride 0.9% 1, 675 525 225 000 ml @ 75 mls/hr IV . [id number] [facility] Rx#:[id number] Oral 100 370 Output: Urine 1150 150 Other: # Voids 1 1 Weight 52.8 kg Results 12/15/19 05:24 12/15/19 05:24 CBC 12/15/19 Range/Units 05:24 WBC 5.4 (3.8-10.6) k/uL RBC 4.33 (3.80-5.40) m/uL Hgb 10.6 L (11.4-16.0) gm/dL Hct 35.2 (34.0-46.0) % Plt Count 501 H (150-450) k/uL Comprehensive Metabolic Panel 12/15/19 Range/Units 05:24 Sodium 141 (137-145) mmol/L Potassium 4.4 (3.5-5.1) mmol/L Chloride 106 (98-107) mmol/L Carbon Dioxide 29 (22-30) mmol/L BUN 17 (7-17) mg/dL Creatinine 0.49 L (0.52-1.04) mg/dL Glucose 84 (74-99) mg/dL Calcium 9.2 (8.4-10.2) mg/dL Current Medications Generic Name Dose Route Start Last Admin Trade Name Freq PRN Reason Stop Dose Admin Acetaminophen/Butalbital/Caffeine 1 each 12/13/19 16:56 12/13/19 17:07 Fioricet 50-325-40 PO 1 each Q4HR PRN Administration Headache Hydrocodone Bitart/Acetaminophen 1 each 12/12/19 17:19 12/13/19 10:11 Mullan 7.5-325 PO 1 each Q4H PRN Administration Pain Aspirin 81 mg 12/13/19 17:00 12/15/19 09:13 Aspirin PO 81 mg DAILY DAYAN Administration Atorvastatin Calcium 80 mg 12/12/19 21:00 12/14/19 21:27 Lipitor PO 80 mg HS DAYAN Administration Sodium Chloride 1,000 mls @ 75 mls/hr 12/14/19 19:45 12/15/19 09:20 Saline 0.9% IV 75 mls/hr .[id number] DAYAN Administration Insulin Aspart 0 unit 12/12/19 17:30 12/15/19 17:10 Novolog SQ 3 unit ACHS DAYAN Administration Protocol Insulin Aspart 3 unit 12/15/19 07:30 12/15/19 17:28 Novolog SQ 3 unit AC-TID DAYAN Administration Insulin Detemir 9 unit 12/12/19 21:00 12/14/19 21:27 Levemir SQ 9 unit HS DAYAN Administration Labetalol HCl 20 mg 12/14/19 19:39 Trandate IVP Q6H PRN Blood Pressure - High Lisinopril 20 mg 12/14/19 21:00 12/15/19 09:13 Zestril PO 20 mg BID DAYAN Administration Ondansetron HCl 4 mg 12/12/19 17:18 12/13/19 03:19 Zofran IVP 4 mg Q6HR PRN Administration Nausea And Vomiting Pantoprazole Sodium 40 mg 12/13/19 07:30 12/15/19 07:14 Protonix PO 40 mg AC-BRKFST DAYAN Administration Intake and Output 12/15/19 12/15/19 12/15/19 06:59 14:59 22:59 Intake Total 775 895 225 Output Total 1150 150 Balance -375 745 225 Intake: Intake, IV Titration 675 525 225 Amount Sodium Chloride 0.9% 1, 675 525 225 000 ml @ 75 mls/hr IV . [id number] [facility] Rx#:[id number] Oral 100 370 Output: Urine 1150 150 Other: # Voids 1 1 Weight 52.8 kg 12/15/19 05:24 12/15/19 05:24
[2019-12-15] MEDS: ATORVASTATIN 80 MG TAB PO SCH (20:23)
[2019-12-15 20:27] LABS: Glucose,Whole Blood 90 mg/dL (75-99)
[2019-12-15] MEDS: INSULIN DETEMIR (LEVEMIR) 100 UNIT/ML SYR SQ SCH (21:37)
[2019-12-16] MEDS: PANTOPRAZOLE 40 MG TABLET PO SCH (07:06)
[2019-12-16] MEDS: INSULIN ASPART (NovoLOG) 100 UNIT/ML VIAL SQ SCH ×7 (07:06→21:25)
[2019-12-16 07:08] LABS: Glucose,Whole Blood 119 mg/dL (75-99)
[2019-12-16] MEDS: ASPIRIN 81 MG PO SCH (08:02)
[2019-12-16] MEDS: LISINOPRIL 20 MG TAB PO SCH ×2 (08:02→21:24)
[2019-12-16] MEDS: SODIUM CHLORIDE 0.9% 1,000 ML IV SCH ×2 (12:00→12:10)
[2019-12-16 12:16] LABS: Glucose,Whole Blood 160 mg/dL (75-99)
[2019-12-16] MEDS: BUTALB/APAP/CAFF 50-325-40MG TAB PO PRN (12:55)
[2019-12-16] MEDS ORDERED: CLINDAMYCIN 600 MG in DEXTROSE 5% IN WATER 50 ML IVPB STA ×2 (12:55)
--- NOTE | 2019-12-16 13:00 | P.PN ---
Subjective Principal diagnosis: Patient is resting comfortably in bed no chest discomfort dizziness lightheadedness or palpitations Her blood pressure this morning was in the 147/84 and 151/81 mmHg. Repeat manual blood pressure was taken and the neurologist was in the room and it went up to 195/82 mmHg Heart sounds are normal and regular Breath sounds are clear no rhonchi no crackles Abdomen soft nontender External is warm no edema Hemoglobin 10.6 Follow-up 2-D echo pending No JVD Impression Patient admitted with symptoms consistent with CVA Received thrombolytics No evidence for residual infarct on brain MRI Labile hypertension Dyslipidemia Type 2 diabetes HDL less than 40 Suggest Continue baby aspirin 81 mg daily atorvastatin 80 mg by mouth daily lisinopril 20 mg twice daily Proceed with implantation of a loop monitor to look for any evidence for atrial fibrillation Objective - Vital Signs Vital signs: Vital Signs Temp 97.9 F 12/16/19 12:00 Pulse 94 12/16/19 12:00 Resp 14 12/16/19 12:00 BP 195/82 12/16/19 12:00 Pulse Ox 100 12/16/19 12:00 Intake & Output 12/15/19 12/16/19 12/16/19 18:59 06:59 18:59 Intake Total 1195 150 0 Output Total 150 Balance 1045 150 0 Weight 54.8 kg Intake: Intake, IV Titration 825 150 Amount Sodium Chloride 0.9% 1, 825 150 000 ml @ 75 mls/hr IV . [id number] [facility] Rx#:[id number] Oral 370 0 Output: Urine 150 Other: # Voids 1 - Labs CBC & Chem 7: 12/15/19 05:24 12/15/19 05:24 Labs: Abnormal Lab Results - Last 24 Hours (Table) 12/15/19 12/15/19 12/16/19 Range/Units 05:24 16:35 07:07 POC Glucose (mg/dL) 211 H 119 H (75-99) mg/dL Iron 20 L (50-170) ug/dL % Saturation 5.13 L (12.00-45.00) 12/16/19 Range/Units 12:08 POC Glucose (mg/dL) 160 H (75-99) mg/dL Iron (50-170) ug/dL % Saturation (12.00-45.00)
[2019-12-16] MEDS ORDERED: LIDOCAINE 1% INJ 10MG/ML (20 ML MDV) ONE (13:28)
[2019-12-16] MEDS ORDERED: MIDAZOLAM 2 MG/2 ML VIAL IVP ONE (13:30)
[2019-12-16] MEDS ORDERED: IV FLUID CONTINUATION 900 ML IV ONE (13:30)
[2019-12-16] MEDS ORDERED: LIDOCAINE 1% INJ 10MG/ML (20 ML MDV) SQ ONE (13:42)
--- NOTE | 2019-12-16 13:56 | P.PCN ---
Preoperative Diagnosis: Loop monitor implant Primary physicians: Dr. Ribeiro Detail Assembler: Dr. Canales Indication: Cryptogenic stroke Patient was brought to the EP lab in a fasting state. Written informed consent was obtained prior to the procedure. The left pectoral area was prepped and draped per protocol. Intravenous antibiotic was administered preoperatively. A subcutaneous Loop monitor was implanted successfully and the wound was closed per protocol. The device was programmed to detect significant thelma- arrhythmic and tachy-arrhythmic events, per protocol. Device and programming details: A. fib detection Patient underwent EP procedure under conscious sedation/moderate sedation, monitoring of the level of consciousness and physiologic parameters including but not limited to vital signs and oxygenation. Patient tolerated the procedure well without any acute complications. Start time: 1340 Stop time: 1349
--- NOTE | 2019-12-16 14:52 | P.PN ---
Subjective Progress Note Date: 12/15/19 Principal diagnosis: Acute CVA Patient is a 69-year-old female with a known history of hypertension, diabetes type 2 insulin-dependent, recent history of bladder surgery on 11/25/2018 was brought to the hospital by her due to complaints of headache and confusion and unable to find words which started around 10 AM this morning. Around 4 AM patient woke up from bed to go to the bathroom and felt headaches which got worse and later patient became confused. She slept for a while and after she woke up around 10 AM she was unable to talk and patient was brought to the hospital. Patient was also having vision problems mainly in the right eye and unable to focus. Denied any focal weakness. No facial droop noted. When she come to the hospital around 4 PM her NIH score was 9. Patient was seen by stroke team and recommended TPA which was given in the ER. Patient did improve symptomatically after TPA. Patient's blood pressure was uncontrolled with SBP greater than 218 mmHg and was also sinus tachycardic. Patient was started on nicardipine drip and also stacey ent was given pain medications which seem to improve her blood pressure as well. CT head showed no acute intracranial process. Mild to moderate diffuse cerebral atrophy and minimal chronic small vessel ischemic changes. CT head and neck was done showed no significant stenosis. Next and EKG showed sinus tachycardia Chest x-ray showed suspect cardiomegaly Lactic acid 4.1 on admission, calcium 10.3 UA negative for infection Platelets 596 k, WBC 11.1 hemoglobin 12.3 Patient was also hyperglycemic on admission with blood sugar in 200s, acetone negative 12/13/2019 Patient denied any complaints of weakness. No no visual disturbance. No neurological symptoms. Headache is much improved. Otherwise blood pressure is elevated. 2-D echocardiogram showed normal ejection fraction and moderate per icardial effusion. Cardiology was consulted. Neurology is following. Patient is scheduled for MRI today. cholesterol 118, LDL 38, HDL 67, triglycerides 67. Continue Lipitor. Hemoglobin A1c 7.7 No complaints of chest pain or shortness of. No nausea vomiting or abdominal pain. 12/14/2019 Patient denied any complaints of chest pain or shortness of breath. Awake alert oriented 3. Denied any visual disturbance focal weakness. Headache is much improved. Otherwise blood pressure is still elevated. Lisinopril dose increased to 20 mg twice a day. Iron panel was ordered due to microcytic an emia. MRI of the brain showed no evidence of acute ischemic change, degenerative and nonspecific white matter changes most typical of remote ischemia. Cardiology and neurology is following. Patient is being continued on Levemir and insulin sliding scale. No headache or dizziness or lightheadedness. No fever no chills. 12/15/18 Pt. denied any c/o CP/SOB. no complaints of weakness or other neurological symptoms. No visual disturbances. Blood pressure is better controlled. Currently on lisinopril 20 mg twice daily. Cardiology is planning for loop recorder placement tomorrow. Neurology is on board. Patient is being transferred to medical telemetry floor today. Current medications reviewed. Objective - Vital Signs Vital signs: Vital Signs Temp 98.2 F 12/15/19 20:00 Pulse 80 12/15/19 20:00 Resp 18 12/15/19 20:00 BP 157/87 12/15/19 20:00 Pulse Ox 96 12/15/19 18:30 Intake & Output 12/15/19 12/15/19 12/16/19 06:59 18:59 06:59 Intake Total 1240 1195 150 Output Total 1350 150 Balance -110 1045 150 Weight 52.8 kg Intake: Intake, IV Titration 900 825 150 Amount Sodium Chloride 0.9% 1, 900 825 150 000 ml @ 75 mls/hr IV . [id number] [facility] Rx#:[id number] Oral 340 370 Output: Urine 1350 150 Other: # Voids 250 1 - Exam PHYSICAL EXAMINATION: Patient is lying in the bed comfortably, no acute distress, awake alert and oriented.. HEENT: Normocephalic. Neck is supple. Pupils reactive. Nostrils clear. Oral cavity is moist. Ears reveal no drainage. Neck reveals no JVD, carotid bruits, or thyromegaly. CHEST EXAMINATION: Trachea is central. Symmetrical expansion. Lung lam clear to auscultation and percussion. CARDIAC: Normal S1, S2 with no gallops. No murmurs . Sinus tachycardia ABDOMEN: Soft. Bowel sounds normal. No organomegaly. No abdominal bruits. Extremities: reveal no edema. No clubbing or cyanosis Neurologically awake, alert, oriented x3 with well-coordinated movements. No focal deficits noted Skin: No rash or skin lesions. Psychiatric: Coperative. Nonsuicidal Musculoskeletal: No joint swelling or deformity. Normal range of motion. - Labs CBC & Chem 7: 12/15/19 05:24 12/15/19 05:24 Labs: Abnormal Lab Results - Last 24 Hours (Table) 12/14/19 12/15/19 12/15/19 Range/Units 21:26 05:24 05:24 Hgb 10.6 L (11.4-16.0) gm/dL MCH 24.5 L (25.0-35.0) pg MCHC 30.0 L (31.0-37.0) g/dL RDW 15.7 H (11.5-15.5) % Plt Count 501 H (150-450) k/uL Creatinine 0.49 L (0.52-1.04) mg/dL POC Glucose (mg/dL) 249 H (75-99) mg/dL Iron 20 L (50-170) ug/dL % Saturation 5.13 L (12.00-45.00) 12/15/19 12/15/19 12/15/19 Range/Units 06:18 12:50 16:35 Hgb (11.4-16.0) gm/dL MCH (25.0-35.0) pg MCHC (31.0-37.0) g/dL RDW (11.5-15.5) % Plt Count (150-450) k/uL Creatinine (0.52-1.04) mg/dL POC Glucose (mg/dL) 118 H 150 H 211 H (75-99) mg/dL Iron (50-170) ug/dL % Saturation (12.00-45.00) Assessment and Plan Assessment: Expressive aphasia and right-sided visual problems likely due to acute CVA. Status post TPA. MRI showed no acute process. Hypertension urgency on admission Severe lactic acidosis 4.1. Improved now Dehydration and volume depletion Mild hypercalcemia secondary to dehydration Hyperglycemia with uncontrolled diabetes type 2 insulin-dependent Recent history of bladder surgery on 11/25/2018 Iron deficiency anemia DVT prophylaxis Plan: Patient is status post TPA and did improve symptomatically. Patient did have improvement in speech and visual problems. Denied any focal weakness. Patient was started on Levemir and insulin sliding scale. Continue with telemetry monitoring. Continue with neuro checks every hour and monitor the patient MICU. Neurology has seen the patient and complete stroke workup including 2-D echocardiogram with bubble study, MRI of the brain and lipid panel and his B A1c was done. Patient is tolerating oral diet.. GI and DVT prophylaxis. Further recommendations based on the clinical course. Discussed with the family at bedside in detail. Time with Patient: Greater than 30
--- NOTE | 2019-12-16 16:34 | P.PN ---
Subjective Progress Note Date: 12/16/19 Patient states that she may had a very slight headache. Apparently her blood pressure earlier morning was 151/81, but now has gone up to 195/82 in the right arm, and 198/100 in the left arm. Patient is noticing some visual disturbance, whenever she closes her eyes, she sees visual imagery with different patterns and colors, green, that forms pattern like a kaleidoscope. It does not occur with eyes open, only when she closes her eyes. It does not happen when she closes one or the other eye, only when she closes both eyes she notices it. Patient's aspirin was recommended to be increased to 325 mg daily, if okay with the cardiology. The visual disturbance started 2 days ago. Objective - Vital Signs Vital signs: Vital Signs Temp 97.0 F L 12/16/19 15:42 Pulse 77 12/16/19 15:42 Resp 18 12/16/19 15:42 BP 186/101 12/16/19 15:42 Pulse Ox 98 12/16/19 15:42 Intake & Output 12/15/19 12/16/19 12/16/19 18:59 06:59 18:59 Intake Total 0706 367 8222 Output Total 150 Balance 5285 692 1244 Weight 54.8 kg Intake: IV 104 Intake, IV Titration 978 445 3052 Amount Sodium Chloride 0.9% 1, 157 293 7160 000 ml @ 75 mls/hr IV . [id number] [facility] Rx#:[id number] Oral 370 240 Output: Urine 150 Other: # Voids 1 - Exam On examination patient's mental status, speech and language functions are normal. Patient able to name, repeat, read, write without difficulty. No paraphasic errors, or word finding problem. On cranial nerve examination pupils are round and reactive to light. Visual lam are full on confrontation with no neglect. Extraocular muscles intact. No nystagmus. Face is symmetric and tongue protrudes the midline. Palatal elevation sensation normal. On muscle strength testing there is no pronator drift and the strength is normal in arms and legs distally and proximally. Reflexes are 1+ and plantars downgoing. Sensory touch is equal with no neglect on double simultaneous stimulation. No ataxia for [id number] testing. Tone and bulk of muscles normal. Gait deferred. - Labs CBC & Chem 7: 12/15/19 05:24 12/15/19 05:24 Labs: Abnormal Lab Results - Last 24 Hours (Table) 12/15/19 12/16/19 12/16/19 Range/Units 16:35 07:07 12:08 POC Glucose (mg/dL) 211 H 119 H 160 H (75-99) mg/dL Assessment and Plan Assessment: * Possible CVA, versus hypertensive encephalopathy, manifesting with expressive aphasia, and complete right homonymous hemianopia. Patient is status post intravenous TPA. MRI of the brain negative for any acute stroke. Her current NIH stroke scale is 0. * New onset visual disturbance, unclear etiology. Perhaps retinal, due to uncontrolled hypertension. * Cephalgia, now resolved. Likely due to hypertensive encephalopathy. Patient does not have any previous history of migraines or family history of migraines. * Hypertension, uncontrolled * Diabetes, not well controlled Plan: * We will recheck computed tomography scan of the head to rule out any intracranial bleed, due to her new onset visual disturbance. Her blood pressure also has gone up. EEG was negative with no epileptiform activity. Consider increasing dose of aspirin to 325 mg if okay with cardiology. * 2-D echo with bubble study showed EF 50-55%. Normal left atrial size. No evidence of PFO or ASD with bubble study. There is moderate generalized pericardial effusion. Patient to undergo repeat 2-D echo today for follow-up on the pericardial effusion. * MRI of the brain completely normal with no acute ischemic stroke. Nonspecific white matter ischemic change. * Fasting a.m. lipid panel showed cholesterol 118, LDL 38, HDL 67, triglycerides 67. Continue Lipitor. * Hemoglobin A1c 7.7, better controlled than previously. * Optimize control of blood pressure. * Discussed with patient's family in detail.
[2019-12-16 17:48] LABS: Glucose,Whole Blood 148 mg/dL (75-99)
--- NOTE | 2019-12-16 19:31 | CT ---
EXAMINATION TYPE: CT brain wo con DATE OF EXAM: 12/16/2019 COMPARISON: 12/12/2019 HISTORY: f/u cva. changes in vision. CT DLP: 1086.4 mGycm Automated exposure control for dose reduction was used. Ventricles have normal size. There is no mass effect nor midline shift. There is no sign of intracran ial hemorrhage. There is mild frontal lobe cortical atrophy. Calvarium is intact. There is a large se lla turcica with CSF. IMPRESSION: Mild frontal lobe atrophy unchanged. No acute intracranial abnormality.
[2019-12-16 20:16] LABS: Glucose,Whole Blood 228 mg/dL (75-99)
[2019-12-16] MEDS: ATORVASTATIN 80 MG TAB PO SCH (21:24)
[2019-12-16] MEDS: INSULIN DETEMIR (LEVEMIR) 100 UNIT/ML SYR SQ SCH (21:25)
[2019-12-17 02:52] VITALS: RESP 18
[2019-12-17] MEDS: SODIUM CHLORIDE 0.9% 1,000 ML IV SCH ×2 (03:46→16:11)
[2019-12-17 06:41] LABS: Glucose,Whole Blood 108 mg/dL (75-99)
[2019-12-17] MEDS: INSULIN ASPART (NovoLOG) 100 UNIT/ML VIAL SQ SCH ×4 (06:44→13:44)
[2019-12-17] MEDS: PANTOPRAZOLE 40 MG TABLET PO SCH (06:45)
[2019-12-17] MEDS: ASPIRIN 81 MG PO SCH (10:39)
[2019-12-17] MEDS: LISINOPRIL 20 MG TAB PO SCH (10:39)
[2019-12-17] MEDS ORDERED: FERROUS SULFATE 325 MG TAB PO SCH (12:30)
[2019-12-17 12:49] LABS: Glucose,Whole Blood 115 mg/dL (75-99)
--- NOTE | 2019-12-17 13:02 | P.PN ---
Subjective Progress Note Date: 12/17/19 the patient is currently resting comfortably in bed. She denies any chest pain, chest pressure, palpitations, dyspnea, dizziness, or vertigo. Follow-up echocardiogram reveals normal LV function with resolved pericardial effusion GENERAL: Well-appearing, well-nourished and in no acute distress. NECK: Supple without JVD or thyromegaly. LUNGS: Breath sounds clear to auscultation bilaterally. Respiration equal and unlabored. No wheezes, rales or rhonchi. HEART: Regular rate and rhythm. No rubs or gallops. Diastolic murmur audible. S1 and S2 heard. EXTREMITIES: Normal range of motion, no edema. No clubbing or cyanosis. Peripheral pulses intact and strong. Impression: #1 acute CVA, received thrombolytics, no residual infarct on MRI #2 labile hypertension #3 dyslipidemia #4 type 2 diabetes #5 pericardial effusion, resolved with repeat echocardiogram Plan: Patient is cleared to be discharged home from the cardiac standpoint. She will continue her current medication regimen. She will follow-up in the office for continued monitoring post loop implant. Objective - Vital Signs Vital signs: Vital Signs Temp 98.8 F 12/17/19 04:00 Pulse 69 12/17/19 04:00 Resp 18 12/17/19 04:00 BP 140/90 12/17/19 04:00 Pulse Ox 97 12/17/19 04:00 Intake & Output 12/16/19 12/17/19 12/17/19 18:59 06:59 18:59 Intake Total 1739 240 Balance 1739 240 Weight 54.6 kg Intake: IV 104 Intake, IV Titration 1275 Amount Sodium Chloride 0.9% 1, 1275 000 ml @ 75 mls/hr IV . [id number] [facility] Rx#:[id number] Oral 360 240 Other: # Voids 4 2 - Labs CBC & Chem 7: 12/15/19 05:24 12/15/19 05:24 Labs: Abnormal Lab Results - Last 24 Hours (Table) 12/16/19 12/16/19 12/17/19 Range/Units 17:42 20:15 06:38 POC Glucose (mg/dL) 148 H 228 H 108 H (75-99) mg/dL 12/17/19 Range/Units 12:45 POC Glucose (mg/dL) 115 H (75-99) mg/dL
[2019-12-17 15:55] VITALS: TEMP 97.9
[2019-12-17 15:59] VITALS: BP 189/84; PULSE 73
--- NOTE | 2019-12-18 13:59 | ECHOF ---
Referral Reason:pericardial effusion MEASUREMENTS -------- HEIGHT: 157.5 cm WEIGHT: 54.4 kg BP: / RAP: 5.00 mmHg RVSP: 30.81 mmHg FINDINGS -------- Sinus rhythm. Limited Study Overall left ventricular systolic function is normal with, an EF between 55 - 60 %. Interatrial and interventricular septum intact. Mild mitral regurgitation is present. Mild tricuspid regurgitation present. Right ventricular systolic pressure is normal at < 35 mmHg. There is a moderate, generalized pericardial effusion present. CONCLUSIONS -------- 1. Sinus rhythm. 2. Limited Study 3. Overall left ventricular systolic function is normal with, an EF between 55 - 60 %. 4. Interatrial and interventricular septum intact. 5. Mild mitral regurgitation is present. 6. Mild tricuspid regurgitation present. 7. Right ventricular systolic pressure is normal at < 35 mmHg. 8. There is a moderate, generalized pericardial effusion present. PURCHASING MANAGER/SALES: Yen Morris RDCS
--- NOTE | 2019-12-21 08:55 | CDI ---
Documentation Clarification Form Date: 12/21/19 From: Aparna Nino CCS Phone: If you have a question about this query, please contact Cinthia Mandel, [employer]ender [employer] at [phone] between 8am and 5pm. Admit Date: 12/12/19 Discharge Date: 12/17/19 Patient Name: Carina White Visit Number: [id number] ATTENTION: The Clinical Documentation Specialists (CDI) and [facility] Coding Staff appreciate your assistance in clarifying documentation. Please respond to the clarification below the line at the bottom and electronically sign. The CDI & [facility] Coding staff will review the response and follow-up if needed. Please note: Queries are made part of the Legal Health Record. If you have any questions, please contact the author of this message via ITS. Dear Dr. Neves Conflicting documentation has been found in the medical record: Probable acute ischemic CVA manifesting with some expressive aphasia and complete right homonymous hemianopia is documented in PNs, Consult Possible CVA versus hypertensive encephalopathy, manifesting w/ expressive aphasia and complete right homonymous hemianopia. Likely hypertensive encephalopathy is documented in the PNs, Consult. History/Risk Factors: HHD, uncontrolled DM, Clinical Indicators: NIH score 9, aphasia, homonymous hemianopia, HTN urgency Treatment: TPA on 12/12/19, Labetalol 20 mg IVP Q6H PRN, Lopressor 5 mg IVP once STA In your opinion, what is the most clinically appropriate diagnosis for this patient? Acute CVA Hypertensive encephalopathy Other explanation of clinical findings Unable to determine (no explanation for clinical findings) Acute CVA MTDD
--- NOTE | 2019-12-27 21:43 | P.PN ---
Subjective Progress Note Date: 12/16/19 Principal diagnosis: Acute CVA Patient is a 69-year-old female with a known history of hypertension, diabetes type 2 insulin-dependent, recent history of bladder surgery on 11/25/2018 was brought to the hospital by her due to complaints of headache and confusion and unable to find words which started around 10 AM this morning. Around 4 AM patient woke up from bed to go to the bathroom and felt headaches which got worse and later patient became confused. She slept for a while and after she woke up around 10 AM she was unable to talk and patient was brought to the hospital. Patient was also having vision problems mainly in the right eye and unable to focus. Denied any focal weakness. No facial droop noted. When she come to the hospital around 4 PM her NIH score was 9. Patient was seen by stroke team and recommended TPA which was given in the ER. Patient did improve symptomatically after TPA. Patient's blood pressure was uncontrolled with SBP greater than 218 mmHg and was also sinus tachycardic. Patient was started on nicardipine drip and also stacey ent was given pain medications which seem to improve her blood pressure as well. CT head showed no acute intracranial process. Mild to moderate diffuse cerebral atrophy and minimal chronic small vessel ischemic changes. CT head and neck was done showed no significant stenosis. Next and EKG showed sinus tachycardia Chest x-ray showed suspect cardiomegaly Lactic acid 4.1 on admission, calcium 10.3 UA negative for infection Platelets 596 k, WBC 11.1 hemoglobin 12.3 Patient was also hyperglycemic on admission with blood sugar in 200s, acetone negative 12/13/2019 Patient denied any complaints of weakness. No no visual disturbance. No neurological symptoms. Headache is much improved. Otherwise blood pressure is elevated. 2-D echocardiogram showed normal ejection fraction and moderate per icardial effusion. Cardiology was consulted. Neurology is following. Patient is scheduled for MRI today. cholesterol 118, LDL 38, HDL 67, triglycerides 67. Continue Lipitor. Hemoglobin A1c 7.7 No complaints of chest pain or shortness of. No nausea vomiting or abdominal pain. 12/14/2019 Patient denied any complaints of chest pain or shortness of breath. Awake alert oriented 3. Denied any visual disturbance focal weakness. Headache is much improved. Otherwise blood pressure is still elevated. Lisinopril dose increased to 20 mg twice a day. Iron panel was ordered due to microcytic an emia. MRI of the brain showed no evidence of acute ischemic change, degenerative and nonspecific white matter changes most typical of remote ischemia. Cardiology and neurology is following. Patient is being continued on Levemir and insulin sliding scale. No headache or dizziness or lightheadedness. No fever no chills. 12/15/18 Pt. denied any c/o CP/SOB. no complaints of weakness or other neurological symptoms. No visual disturbances. Blood pressure is better controlled. Currently on lisinopril 20 mg twice daily. Cardiology is planning for loop recorder placement tomorrow. Neurology is on board. Patient is being transferred to medical telemetry floor today. 12/16/2019 Patient denied any complaints of chest pain or shortness of breath today. Blood pressure is fairly controlled and medications are being adjusted. Neurology has seen the patient. MRI is negative for any acute CVA. Possibility of hypertensive encephalopathy is also being considered. Patient presented with aphasia and right homonymous anopia. Currently symptomatically improved. Loop recorder is being placed by cardiology today. No complaints of chest pain or shortness of breath. No nausea vomiting or abdominal pain. Current medications reviewed. Objective - Vital Signs Vital signs: Vital Signs Temp 97.2 F L 12/16/19 14:27 Pulse 95 12/16/19 13:01 Resp 19 12/16/19 14:27 BP 167/80 12/16/19 14:27 Pulse Ox 97 12/16/19 14:27 Intake & Output 12/15/19 12/16/19 12/16/19 18:59 06:59 18:59 Intake Total 4575 291 6204 Output Total 150 Balance 9097 324 1385 Weight 54.8 kg Intake: IV 104 Intake, IV Titration 792 167 2805 Amount Sodium Chloride 0.9% 1, 577 144 7104 000 ml @ 75 mls/hr IV . [id number] [facility] Rx#:[id number] Oral 370 240 Output: Urine 150 Other: # Voids 1 - Exam PHYSICAL EXAMINATION: Patient is lying in the bed comfortably, no acute distress, awake alert and oriented.. HEENT: Normocephalic. Neck is supple. Pupils reactive. Nostrils clear. Oral cavity is moist. Ears reveal no drainage. Neck reveals no JVD, carotid bruits, or thyromegaly. CHEST EXAMINATION: Trachea is central. Symmetrical expansion. Lung lam clear to auscultation and percussion. CARDIAC: Normal S1, S2 with no gallops. No murmurs . Sinus tachycardia ABDOMEN: Soft. Bowel sounds normal. No organomegaly. No abdominal bruits. Extremities: reveal no edema. No clubbing or cyanosis Neurologically awake, alert, oriented x3 with well-coordinated movements. No focal deficits noted Skin: No rash or skin lesions. Psychiatric: Coperative. Nonsuicidal Musculoskeletal: No joint swelling or deformity. Normal range of motion. - Labs CBC & Chem 7: 12/15/19 05:24 12/15/19 05:24 Labs: Abnormal Lab Results - Last 24 Hours (Table) 12/15/19 12/15/19 12/16/19 Range/Units 05:24 16:35 07:07 POC Glucose (mg/dL) 211 H 119 H (75-99) mg/dL Iron 20 L (50-170) ug/dL % Saturation 5.13 L (12.00-45.00) 12/16/19 Range/Units 12:08 POC Glucose (mg/dL) 160 H (75-99) mg/dL Iron (50-170) ug/dL % Saturation (12.00-45.00) Assessment and Plan Assessment: Expressive aphasia and right-sided visual problems likely due to acute CVA. S tatus post TPA. MRI showed no acute process. Hypertension urgency on admission Severe lactic acidosis 4.1. Improved now Dehydration and volume depletion Mild hypercalcemia secondary to dehydration Hyperglycemia with uncontrolled diabetes type 2 insulin-dependent Recent history of bladder surgery on 11/25/2018 Iron deficiency anemia DVT prophylaxis Plan: Patient is status post TPA and did improve symptomatically. Patient did have improvement in speech and visual problems. Denied any focal weakness. Patient was started on Levemir and insulin sliding scale. Continue with telemetry monitoring. Continue with neuro checks every hour and monitor the patient MICU. Neurology has seen the patient and complete stroke workup including 2-D echocardiogram with bubble study, MRI of the brain and lipid panel and his B A1c was done. Patient is tolerating oral diet.. GI and DVT prophylaxis. Further recommendations based on the clinical course. Discussed with the family at bedside in detail. Time with Patient: Greater than 30
--- NOTE | 2019-12-27 21:47 | P.DS ---
Providers Date of admission: 12/12/19 14:36 Expected date of discharge: 12/17/19 Attending physician: Evita Neves Consults: 12/12/19 14:38 Consult Physician Urgent Consulting Provider: Michael Dowd Consult Reason/Comments: acute cva Do you want consulting provider notified?: Already Contacted Consult Physician Urgent Consulting Provider: Leo Godinez Consult Reason/Comments: acute cva Do you want consulting provider notified?: Yes 12/13/19 12:12 Consult Physician Urgent Consulting Provider: Abilio Canales Consult Reason/Comments: pericardial effusion Do you want consulting provider notified?: Already Contacted Primary care physician: Christine Trinidad Hospital Course: Discharge diagnosis Expressive aphasia and right-sided visual problems likely due to acute CVA. Status post TPA. MRI showed no acute process. Hypertension urgency on admission. Possible hypertensive encephalopathy. Severe lactic acidosis 4.1. Improved now Dehydration and volume depletion Mild hypercalcemia secondary to dehydration Hyperglycemia with uncontrolled diabetes type 2 insulin-dependent Recent history of bladder surgery on 11/25/2018 Iron deficiency anemia DVT prophylaxis Hospital course Patient is a 69-year-old female with a known history of hypertension, diabetes type 2 insulin-dependent, recent history of bladder surgery on 11/25/2018 was brought to the hospital by her due to complaints of headache and confusion and unable to find words which started around 10 AM this morning. Around 4 AM patient woke up from bed to go to the bathroom and felt headaches which got worse and later patient became confused. She slept for a while and after she woke up around 10 AM she was unable to talk and patient was brought to the hospital. Patient was also having vision problems mainly in the right eye and unable to focus. Denied any focal weakness. No facial droop noted. When she come to the hospital around 4 PM her NIH score was 9. Patient was seen by stroke team and recommended TPA which was given in the ER. Patient did improve symptomatically after TPA. Patient's blood pressure was uncontrolled with SBP greater than 218 mmHg and was also sinus tachycardic. Patient was started on nicardipine drip and also patient was given pain medications which seem to improve her blood pressure as well. CT head showed no acute intracranial process. Mild to moderate diffuse cerebral atrophy and minimal chronic small vessel ischemic changes. CT head and neck was done showed no significant stenosis. Next and EKG showed sinus tachycardia Chest x-ray showed suspect cardiomegaly Lactic acid 4.1 on admission, calcium 10.3 UA negative for infection Platelets 596 k, WBC 11.1 hemoglobin 12.3 Patient was also hyperglycemic on admission with blood sugar in 200s, acetone negative 12/13/2019 Patient denied any complaints of weakness. No no visual disturbance. No neurological symptoms. Headache is much improved. Otherwise blood pressure is elevated. 2-D echocardiogram showed normal ejection fraction and moderate pericardial effusion. Cardiology was consulted. Neurology is following. Patient is scheduled for MRI today. cholesterol 118, LDL 38, HDL 67, triglycerides 67. Continue Lipitor. Hemoglobin A1c 7.7 No complaints of chest pain or shortness of. No nausea vomiting or abdominal pain. 12/14/2019 Patient denied any complaints of chest pain or shortness of breath. Awake alert oriented 3. Denied any visual disturbance focal weakness. Headache is much improved. Otherwise blood pressure is still elevated. Lisinopril dose increased to 20 mg twice a day. Iron panel was ordered due to microcytic anemia. MRI of the brain showed no evidence of acute ischemic change, degenerative and nonspecific white matter changes most typical of remote ischemia. Cardiology and neurology is following. Patient is being continued on Levemir and insulin sliding scale. No headache or dizziness or lightheadedness. No fever no chills. 12/15/18 Pt. denied any c/o CP/SOB. no complaints of weakness or other neurological symptoms. No visual disturbances. Blood pressure is better controlled. Currently on lisinopril 20 mg twice daily. Cardiology is planning for loop recorder placement tomorrow. Neurology is on board. Patient is being transferred to medical telemetry floor today. 12/16/2019 Patient denied any complaints of chest pain or shortness of breath today. Blood pressure is fairly controlled and medications are being adjusted. Neurology has seen the patient. MRI is negative for any acute CVA. Possibility of hypertensive encephalopathy is also being considered. Patient presented with aphasia and right homonymous anopia. Currently symptomatically improved. Loop recorder is being placed by cardiology today. No complaints of chest pain or shortness of breath. No nausea vomiting or abdominal pain. 12/17/2019 Patient denied any complaints of headache or dizziness or lightheadedness. Blood pressure is controlled. No complaints of nausea vomiting. No chest pain or shortness of. Patient is cleared from cardiology and neurology standpoint. Patient is being discharged home today. PHYSICAL EXAMINATION: Patient is lying in the bed comfortably, no acute distress, awake alert and oriented.. HEENT: Normocephalic. Neck is supple. Pupils reactive. Nostrils clear. Oral cavity is moist. Ears reveal no drainage. Neck reveals no JVD, carotid bruits, or thyromegaly. CHEST EXAMINATION: Trachea is central. Symmetrical expansion. Lung lam clear to auscultation and percussion. CARDIAC: Normal S1, S2 with no gallops. No murmurs . Sinus tachycardia ABDOMEN: Soft. Bowel sounds normal. No organomegaly. No abdominal bruits. Extremities: reveal no edema. No clubbing or cyanosis Neurologically awake, alert, oriented x3 with well-coordinated movements. No focal deficits noted Skin: No rash or skin lesions. Psychiatric: Coperative. Nonsuicidal Musculoskeletal: No joint swelling or deformity. Normal range of motion. Vital Signs Temp 98.8 F 12/17/19 04:00 Pulse 69 12/17/19 04:00 Resp 18 12/17/19 04:00 BP 140/90 12/17/19 04:00 Pulse Ox 97 12/17/19 04:00 Intake & Output 12/16/19 12/17/19 12/17/19 18:59 06:59 18:59 Intake Total 1739 240 Balance 1739 240 Weight 54.6 kg Intake: IV 104 Intake, IV Titration 1275 Amount Sodium Chloride 0.9% 1, 1275 000 ml @ 75 mls/hr IV . [id number] [facility] Rx#:[id number] Oral 360 240 Other: # Voids 4 2 time taken>35 min Patient Condition at Discharge: Fair Plan - Discharge Summary Discharge Rx Participant: No New Discharge Prescriptions: New Aspirin 81 mg PO DAILY #30 chew Lisinopril [Zestril] 20 mg PO BID #60 tab Ferrous Sulfate [Iron (65 MG Elemental)] 325 mg PO W/LUNCH #30 tab Atorvastatin [Lipitor] 40 mg PO HS #30 tablet Continue Insulin Degludec [Tresiba] 6 units SQ HS Esomeprazole Magnesium [NexIUM] 40 mg PO DAILY Biotin 5 mg PO DAILY Vit C/E/Zn/Coppr/Lutein/Zeaxan [Preservision Areds 2 Softgel] 1 cap PO BID metFORMIN HCL 1,000 mg PO BID Ubidecarenone [Co Q-10] 100 mg PO DAILY Eszopiclone [Lunesta] 2 mg PO HS Insulin Aspart [NovoLOG Flexpen] See Protocol SQ AC-TID Oxybutynin Chloride [Ditropan] 5 mg PO TID PRN PRN Reason: BLADDER SPASMS Discontinued Naproxen Sodium [Aleve] 220 mg PO BID Pravastatin Sodium [Pravachol] 20 mg PO HS Lisinopril 20 mg PO DAILY Furosemide [Lasix] 20 mg PO DAILY Potassium Chloride 10 meq PO DAILY Discharge Medication List Biotin 5 mg PO DAILY 04/05/19 [History] Esomeprazole Magnesium [NexIUM] 40 mg PO DAILY 04/05/19 [History] Insulin Degludec [Tresiba] 6 units SQ HS 04/05/19 [History] Ubidecarenone [Co Q-10] 100 mg PO DAILY 04/05/19 [History] Vit C/E/Zn/Coppr/Lutein/Zeaxan [Preservision Areds 2 Softgel] 1 cap PO BID 04/05/19 [History] metFORMIN HCL 1,000 mg PO BID 04/05/19 [History] Eszopiclone [Lunesta] 2 mg PO HS 12/12/19 [History] Insulin Aspart [NovoLOG Flexpen] See Protocol SQ AC-TID 12/12/19 [History] Oxybutynin Chloride [Ditropan] 5 mg PO TID PRN 12/12/19 [History] Aspirin 81 mg PO DAILY #30 chew 12/17/19 [Rx] Atorvastatin [Lipitor] 40 mg PO HS #30 tablet 12/17/19 [Rx] Ferrous Sulfate [Iron (65 MG Elemental)] 325 mg PO W/LUNCH #30 tab 12/17/19 [Rx] Lisinopril [Zestril] 20 mg PO BID #60 tab 12/17/19 [Rx] Follow up Appointment(s)/Referral(s): Abilio Canales MD [STAFF PHYSICIAN] - 3 Weeks (Device clinic follow-up within one week Follow-up with Dr. Canales/Jeannette West/Gisell Solano in 3 weeks) Christine Trinidad DO [Primary Care Provider] - 1-2 days Patient Instructions/Handouts: Stroke (DC), Cardiac Loop Recorder Insertion (DC ) Discharge Disposition: HOME SELF-CARE
== END 2019-12-17 17:05 | disposition home or self-care (01) | DRG 41 ==
LOC: EC 12:14 → 2SICU 14:36 → 3SCARD 12-15 21:02
PROVIDERS: ADMIT Internal Medicine; ATTEND Internal Medicine
PROC: 3E03317 Introduction of Other Thrombolytic into Peripheral Vein, Percutaneous Approach (ICD-10-PCS; 2019-12-12)
PROC: 0JH602Z Insertion of Monitoring Device into Chest Subcutaneous Tissue and Fascia, Open Approach (ICD-10-PCS; principal; 2019-12-16 11:45)
DX: I63.40 Cerebral infarction due to embolism of unspecified cerebral artery (principal); E87.2 Acidosis; I31.3 Pericardial effusion (noninflammatory); D62 Acute posthemorrhagic anemia; R47.01 Aphasia; H53.461 Homonymous bilateral field defects, right side; E86.0 Dehydration; I11.9 Hypertensive heart disease without heart failure; I16.0 Hypertensive urgency; E11.65 Type 2 diabetes mellitus with hyperglycemia; R29.709 NIHSS score 9; E78.5 Hyperlipidemia, unspecified; R00.0 Tachycardia, unspecified; K21.9 Gastro-esophageal reflux disease without esophagitis; R29.703 NIHSS score 3; R13.10 Dysphagia, unspecified; R47.1 Dysarthria and anarthria; E83.52 Hypercalcemia; R29.700 NIHSS score 0; R51 Headache; I48.0 Paroxysmal atrial fibrillation; H53.9 Unspecified visual disturbance; R47.02 Dysphasia; Z79.1 Long term (current) use of non-steroidal anti-inflammatories (NSAID); Z79.4 Long term (current) use of insulin; Z79.899 Other long term (current) drug therapy; Z98.42 Cataract extraction status, left eye; Z96.1 Presence of intraocular lens; Z98.41 Cataract extraction status, right eye; Z90.710 Acquired absence of both cervix and uterus; Z98.890 Other specified postprocedural states; Z88.5 Allergy status to narcotic agent; Z91.048 Other nonmedicinal substance allergy status; Z83.3 Family history of diabetes mellitus; Z82.3 Family history of stroke; Z82.49 Family history of ischemic heart disease and other diseases of the circulatory system; Z82.61 Family history of arthritis
CPT/HCPCS: 33285; 36415; 37195; 70450; 70496; 70498; 70544; 70551; 71045; 72170; 80048; 80053; 80061; 81003; 82009; 82728; 83036; 83540; 83550; 83605; 84443; 84484; 85025; 85027; 85610; 85730; 93005; 93306; 93308; 95819; 96365; 96366; 96375; 99291

== ENCOUNTER → 2020-06-06 | Outpatient (CLI) | payer MEDICARE ==
--- NOTE | 2020-06-07 10:41 | MM ---
Reason for exam: screening (asymptomatic). Last mammogram was performed 1 year and 1 month ago. History: Patient is postmenopausal. Physical Findings: A clinical breast exam by your physician is recommended on an annual basis and results should be correlated with mammographic findings. MG 3D Screening Mammo W/Cad Bilateral CC and MLO view(s) were taken. Prior study comparison: April 27, 2019, bilateral MG 3d screening mammo w/cad. April 08, 2018, bilateral MG 3d screening mammo w/cad. The breast tissue is heterogeneously dense. This may lower the sensitivity of mammography. No significant changes when compared with prior studies. ASSESSMENT: Benign, BI-RAD 2 RECOMMENDATION: Routine screening mammogram of both breasts in 1 year.
== END | disposition home or self-care (01) ==
LOC: RADMAMWWP 09:23
PROVIDERS: ATTEND Family Medicine
DX: Z12.31 Encounter for screening mammogram for malignant neoplasm of breast (principal)
CPT/HCPCS: 77063; 77067

== ENCOUNTER → 2021-06-11 | Outpatient (CLI) | payer MEDICARE ==
--- NOTE | 2021-06-12 11:04 | MM ---
Reason for exam: screening (asymptomatic). Last mammogram was performed 1 year ago. History: Patient is postmenopausal. Physical Findings: A clinical breast exam by your physician is recommended on an annual basis and results should be correlated with mammographic findings. MG 3D Screening Mammo W/Cad Bilateral CC and MLO view(s) were taken. Prior study comparison: June 06, 2020, bilateral MG 3d screening mammo w/cad. April 27, 2019, bilateral MG 3d screening mammo w/cad. The breast tissue is heterogeneously dense. This may lower the sensitivity of mammography. Stable vascular calcifications. There is no discrete abnormality. No significant changes when compared with prior studies. ASSESSMENT: Benign, BI-RAD 2 RECOMMENDATION: Routine screening mammogram of both breasts in 1 year.
== END | disposition home or self-care (01) ==
LOC: RADMAMWWP 13:32
PROVIDERS: ATTEND Family Medicine
DX: Z12.31 Encounter for screening mammogram for malignant neoplasm of breast (principal); Z78.0 Asymptomatic menopausal state
CPT/HCPCS: 77063; 77067

== ENCOUNTER → 2022-06-13 | Outpatient (CLI) | payer MEDICARE ==
--- NOTE | 2022-06-16 10:10 | MM ---
Reason for Exam: Screening (asymptomatic). Last screening mammogram was performed 12 month(s) ago. Patient History: Menarche at age 15. First Full-Term at age 29. Left ovary removed at age 60. Right ovary removed at age 60. Hysterectomy at age 60. Postmenopausal. Risk Values: Lynda 5 year model risk: 1.9%. NCI Lifetime model risk: 5.6%. Prior Study Comparison: 04/27/2019 Bilateral Screening Mammogram, [facility]. 06/06/2020 Bilateral Screening Mammogram, [facility]. 06/11/2021 Bilateral Screening Mammogram, [facility]. Tissue Density: The breast tissue is heterogeneously dense. This may lower the sensitivity of mammography. Findings: Analyzed By CAD. Benign bilateral vascular calcifications. Loop recorder device posterior medially partially visualized. No significant change from prior exams. Overall Assessment: Negative, BI-RAD 1 Management: Screening Mammogram of both breasts in 1 year. 1. Patient should continue monthly self breast exams. 2. A clinical breast exam by your physician is recommended on an annual basis. 3. This exam should not preclude additional follow-up of suspicious palpable abnormalities. Electronically signed and approved by: Grant Huertas M.D. Radiologist
== END | disposition home or self-care (01) ==
LOC: RADMAMWWP 13:34
PROVIDERS: ATTEND Family Medicine
DX: Z12.31 Encounter for screening mammogram for malignant neoplasm of breast (principal); Z78.0 Asymptomatic menopausal state
CPT/HCPCS: 77063; 77067

== ENCOUNTER 2023-09-11 08:26 | Day surgery (SDC) | payer MEDICARE ==
[~2023-09-11 08:26] MED LIST: SODIUM CHLORIDE 0.9% 1,000 ML IV SCH
[2023-09-11] MEDS ORDERED: SODIUM CHLORIDE 0.9% 500 ML 500 ML IV ONE (08:32)
[2023-09-11 08:49] VITALS: PULSE 103; TEMP 97.7
[2023-09-11] MEDS ORDERED: LIDOCAINE 1% INJ 10MG/ML (20 ML MDV) ONE (09:25)
[2023-09-11] MEDS ORDERED: fentaNYL (PF) 50 MCG/ML 2 ML AMP ONE (09:35)
[2023-09-11] MEDS ORDERED: MIDAZOLAM 2 MG/2 ML VIAL IVP ONE (09:36)
[2023-09-11] MEDS ORDERED: LIDOCAINE 1% INJ 10MG/ML (20 ML MDV) SQ ONE (09:38)
--- NOTE | 2023-09-11 09:54 | P.EPPROC ---
- EP Procedure Note Electrophysiology Procedure Note: Procedure: Loop explant under sedation and local anesthesia. Diagnosis: Loop monitor at [facility] Patient was brought to the EP lab in a fasting state. Written informed consent was obtained prior to the procedure. The subcutaneous device was successfully explanted under local anesthesia. Preoperative antibiotics were administered. The wound was closed in layers and dressed per protocol. Result: Successful loop monitor explantation. Patient underwent EP procedure under conscious sedation/moderate sedation, monitoring of the level of consciousness and physiologic parameters including but not limited to vital signs and oxygenation. Patient tolerated the procedure well without any acute complications. Start time: 934 Stop time: 945
[2023-09-11 11:04] VITALS: BP 133/66
[2023-09-11 12:11] VITALS: RESP 16
== END 2023-09-11 10:57 | disposition home or self-care (01) ==
LOC: CATHEP 08:26
PROVIDERS: ATTEND Internal Medicine Clinical Cardiac Electrophysiology
DX: R55 Syncope and collapse (principal); I10 Essential (primary) hypertension; E78.5 Hyperlipidemia, unspecified; E11.9 Type 2 diabetes mellitus without complications; Z79.84 Long term (current) use of oral hypoglycemic drugs; Z79.899 Other long term (current) drug therapy; Z88.5 Allergy status to narcotic agent; Z79.82 Long term (current) use of aspirin
CPT/HCPCS: 33286; J2250; J0690; J2001

== ENCOUNTER → 2024-06-22 | Outpatient (CLI) | payer MEDICARE ==
--- NOTE | 2024-06-22 13:38 | MM ---
Reason for Exam: Screening (asymptomatic). Last screening mammogram was performed 12 month(s) ago. Patient History: Menarche at age 15. First Full-Term at age 29. Left ovary removed at age 60. Right ovary removed at age 60. Hysterectomy at age 60. Postmenopausal. Risk Values: Lynda 5 year model risk: 2.0%. NCI Lifetime model risk: 5.1%. Prior Study Comparison: 06/11/2021 Bilateral Screening Mammogram, [facility]. 06/13/2022 Bilateral MG 3D screening mammo w/cad, [facility]. 06/15/2023 Bilateral MG 3D screening mammo w/cad, [facility]. Tissue Density: The breasts are heterogeneously dense, which may obscure small masses. Findings: Analyzed By CAD. There is no suspicious group of microcalcifications or new suspicious mass in either breast. Overall Assessment: Negative, BI-RAD 1 Management: Screening Mammogram of both breasts in 1 year. . Patient should continue monthly self-breast exams. A clinical breast exam by your physician is recommended on an annual basis. This exam should not preclude additional follow-up of suspicious palpable abnormalities. Note on Lynda scores and lifetime risk: 1. A Lynda score greater than 3% is considered moderate risk. If this is the case, consider specialist referral to assess eligibility for a risk reducing agent. 2. If overall lifetime risk for the development of breast cancer is 20% or higher, the patient may qualify for future screening with alternating mammogram and breast MRI. Electronically signed and approved by: Jake Good M.D. Radiologis
== END | disposition home or self-care (01) ==
LOC: RADMAMWWP 11:17
PROVIDERS: ATTEND Family Medicine
DX: Z12.31 Encounter for screening mammogram for malignant neoplasm of breast (principal); R92.333 Mammographic heterogeneous density, bilateral breasts; Z78.0 Asymptomatic menopausal state
CPT/HCPCS: 77063; 77067